=== PATIENT | male | born 1965 | race Caucasian/White ===

== ENCOUNTER 2019-07-05 06:06 | Emergency (ER) | payer MEDICARE, SELFPAY ==
--- NOTE | ~2019-07-05 | XR_ITS ---
XR knee LT 2V 07/05/2019 06:44 Indication: Left knee pain Procedure: 3 views left knee Comparison: 06/05/2017 Findings: Large amount of prepatellar soft tissue swelling. No acute fracture or traumatic malalignme nt. Small loose bodies are identified overlying the joint space, unchanged from prior examination. Impression: 1: No acute fracture. 2: Large amount of prepatellar soft tissue swelling. Consider bursitis. Reviewed, dictated and finalized at location A. Impression: 1: No acute fracture. 2: Large amount of prepatellar soft tissue swelling. Consider bursitis.
[2019-07-05 06:06] VITALS: BP 151/91; PULSE 78; RESP 20; TEMP 36.2; O2SAT 98
--- NOTE | 2019-07-05 06:27 | ED.LOWEXIN ---
HPI - Extremity Injury (Lower) General Chief Complaint: Extremity Injury, Lower Stated Complaint: ambulance Source: patient Mode of arrival: ambulatory Limitations: no limitations History of Present Illness HPI Narrative: This is a 54-year-old morbidly obese gentleman that was at home and was going to the bathroom and fell and landed directly on his left knee others currently pain that he rates at 8/10, also a hematoma anterior surface of his left knee patient is ordered Xarelto for history of DVTs. There is no other injuries has decreased range of motion of his left knee secondary to pain and swelling and inflammation. There is no numbness or tingling and has a good brisk pedal pulse. Onset (ago): hour(s) Injury: Left: knee Place: home Severity: moderate Severity scale (1-10): 8 Relieving factors: nothing Exacerbating factors: weight bearing and movement Context: fall and direct blow Associated symptoms: swelling Other symptoms: none Related Data Home Medications Medication Instructions Recorded Confirmed allopurinol 300 mg PO DAILY 07/05/19 07/05/19 amiodarone 200 mg PO DAILY 07/05/19 07/05/19 benazepril 20 mg PO DAILY 07/05/19 07/05/19 citalopram 20 mg PO DAILY 07/05/19 07/05/19 furosemide 40 mg PO DAILY 07/05/19 07/05/19 levothyroxine 100 mcg PO DAILY 07/05/19 07/05/19 pantoprazole 40 mg PO DAILY 07/05/19 07/05/19 potassium chloride 20 meq PO DAILY 07/05/19 07/05/19 rivaroxaban [Xarelto] 20 mg PO DAILY 07/05/19 07/05/19 triamcinolone acetonide 1 applic TOPICAL DAILY 07/05/19 07/05/19 Allergies Allergy/AdvReac Type Severity Reaction Status Date / Time Penicillins AdvReac Unknown Verified 07/05/19 06:24 Review of Systems Review of Systems: All systems reviewed & are unremarkable except as noted in HPI and below PMFSH Past Medical History Medical History DVT (deep venous thrombosis) HTN (hypertension) Hypothyroidism (acquired) Exam Const: General: no acute distress and alert Nutritional Appearance: well nourished and obese Orientation/consciousness: patient oriented x3 HENMT: Head: normal to inspection Eyes: Conjunctivae: conjunctivae normal Pupils: Equal, round and reactive pupils present EOM: EOMs intact bilaterally Neck: Neck: normal visual inspection and no lymphadenopathy Chest: Chest palpation & inspection: normal inspection of the chest Resp: Effort & Inspection: normal respiratory effort GI: GI Palp: Yes Soft to palpation Percussion: Yes normal to percussion Back/Spine/Pelvis: Back: no CVA tenderness Skin: Wounds: wounds noted ( Anterior surface of his left knee with hematoma) Neuro: General: patient oriented x3 Extrem: Other: hematoma swelling and decreased range of motion of his left knee secondary to pain and inflammation Psych: Mental Status: mental status grossly normal Critical Care Time Critical Care Time Critical Care Time: No Discharge Plan Discharge Prescriptions: No Action furosemide 40 mg tablet 40 mg PO DAILY RF: 0 amiodarone 200 mg tablet 200 mg PO DAILY RF: 0 triamcinolone acetonide 0.1 % cream 1 applic TOPICAL DAILY RF: 0 levothyroxine 100 mcg tablet 100 mcg PO DAILY RF: 0 citalopram 20 mg tablet 20 mg PO DAILY RF: 0 potassium chloride 20 mEq tablet,ER particles/crystals 20 meq PO DAILY RF: 0 pantoprazole 40 mg tablet,delayed release (DR/EC) 40 mg PO DAILY RF: 0 benazepril 20 mg tablet 20 mg PO DAILY RF: 0 allopurinol 300 mg tablet 300 mg PO DAILY RF: 0 Xarelto 20 mg tablet 20 mg PO DAILY RF: 0
[2019-07-05] MEDS: KETOROLAC (*BKC) 60 MG/2 ML VIAL IM (06:32)
--- NOTE | 2019-07-05 07:02 | PC.NURSE ---
0615 ICE PACK APPLIED TO LEFT KNEE. 0700 MARLENY WRAP APPLIED TO LEFT KNEE.
[2019-07-05 07:21] VITALS: BP 138/75; PULSE 78; RESP 20; TEMP 36.3; O2SAT 97
--- NOTE | 2019-07-05 07:31 | PC.NURSE ---
EXTRA WIDE BENCH TAKEN TO ROOM FOR PT. ASSISTED TO BENCH. PT ABLE TO STAND ON LEFT KNEE AND AMBULATE WITH NO ASSISTANCE. PT GIVEN CALL MENDEZ. WATCHING TV. DOMINICK REID ORDERED.
== END 2019-07-05 07:30 | disposition home or self-care (01) ==
PROVIDERS: Emergency Provider Emergency Medicine; PCP Family Medicine
DX: S83.92XA Sprain of unspecified site of left knee, initial encounter (principal); Z86.718 Personal history of other venous thrombosis and embolism; I10 Essential (primary) hypertension; E03.9 Hypothyroidism, unspecified; W19.XXXA Unspecified fall, initial encounter
CPT/HCPCS: 73560; 96372; 99282; 99283; J1885

== ENCOUNTER 2019-08-06 15:37 | Observation (INO) | payer MEDICARE, MEDICAID, SELFPAY ==
--- NOTE | ~2019-08-06 | CT_ITS ---
EXAMINATION: CT knee LT w con DATE: 08/06/2019 18:30 INDICATION: Left anterior knee wound/cellulitis TECHNIQUE: Computed tomography (CT) of the left knee was performed with 100 cc intravenous contrast. The dose-length product was 1019.82 mGy-cm. Automated exposure control and iterative reconstruction t echnique were employed. COMPARISON: Left knee series dated 07/05/2019 FINDINGS: There is a walled off hypodense fluid collection involving the prepatellar and infrapatella r anterior soft tissues measuring 9.7 x 2.3 x 2.1 cm. There is moderate surrounding edema of the subc utaneous tissues. There is a focal skin defect at the superior margin of the fluid collection. No acu te fracture or traumatic malalignment. There is mild osteoarthritis of the knee. There are small ossi fic densities along the medial margin of the distal aspect of the femur, likely related to remote tra sammi or degenerative change. There are vascular calcifications. No significant joint effusion. IMPRESSION: 1. Superficial walled off fluid collection with enhancing rim, suspicious for abscess, measuring 9.7 x 2.3 x 2.1 cm with the superior aspect of the patellar level extending inferiorly to the level of th e tibial metaphysis. There is a soft tissue cleft along the superior margin of the fluid collection w hich may represent ulceration, surgical defect or laceration. Correlate clinically. There is adjacent subcutaneous edema suspicious for cellulitis. Reviewed, dictated and finalized at location A. IMPRESSION: 1. Superficial walled off fluid collection with enhancing rim, suspicious for a bscess, measuring 9.7 x 2.3 x 2.1 cm with the superior aspect of the patellar l evel extending inferiorly to the level of the tibial metaphysis. There is a sof t tissue cleft along the superior margin of the fluid collection which may repr esent ulceration, surgical defect or laceration. Correlate clinically. There is adjacent subcutaneous edema suspicious for cellulitis.
[2019-08-06 15:40] VITALS: BP 132/72; PULSE 88; RESP 20; TEMP 36.7; O2SAT 96
--- NOTE | 2019-08-06 16:08 | ED.WOUNDLAC ---
HPI - Wound/Laceration General Chief Complaint: Wound/Laceration Stated Complaint: knee pain Time Seen by Provider: 08/06/19 16:08 Source: patient Mode of arrival: ambulatory History of Present Illness HPI narrative: 54-year-old man with a history of chronic venous stasis in his lower extremities was sent from Dr. Cantu's office for redness, pain swelling and drainage from a left knee wound that has been present for over a week. He states he fell. He denies fever, nausea, vomiting, night sweats, shortness of breath, cough or cold symptoms, recent travel or ill exposures. He denies prior bacterial infections. Onset (ago): week(s) (1-1.5) Extremity Location: Left: knee Place: home Patient tetanus UTD: No Context: accidental Associated symptoms: pain Treatments prior to arrival: bandage Related Data Home Medications Medication Instructions Recorded Confirmed allopurinol 300 mg PO DAILY 07/05/19 08/06/19 amiodarone 200 mg PO DAILY 07/05/19 08/06/19 benazepril 20 mg PO DAILY 07/05/19 08/06/19 citalopram 20 mg PO DAILY 07/05/19 08/06/19 furosemide 40 mg PO DAILY 07/05/19 08/06/19 levothyroxine 100 mcg PO DAILY 07/05/19 08/06/19 pantoprazole 40 mg PO DAILY 07/05/19 08/06/19 potassium chloride 20 meq PO DAILY 07/05/19 08/06/19 rivaroxaban [Xarelto] 20 mg PO DAILY 07/05/19 08/06/19 Allergies Allergy/AdvReac Type Severity Reaction Status Date / Time Sulfa (Sulfonamide Allergy Rash Verified 08/06/19 16:25 Antibiotics) Penicillins AdvReac Unknown Verified 07/05/19 06:24 Review of Systems Constitutional: Constitutional: Denies chills, Denies fever(s) and Denies weakness Eyes: Eyes: Denies change in vision and Denies photophobia ENT: Denies dysphagia, Denies nasal congestion and Denies sore throat Cardiovascular: Cardiovascular: Denies chest pain and Denies radiating jaw, neck or arm pain Respiratory: Respiratory: Denies cough, Denies dyspnea and Denies wheezing Gastrointestinal: Gastrointestinal: Denies abdominal pain, Denies diarrhea, Denies nausea and Denies vomiting Genitourinary: Genitourinary: Denies dysuria, Denies urinary frequency and Denies urinary incontinence Musculoskeletal: Musculoskeletal: Denies back pain, Reports arthralgias and Reports joint swelling Integumentary/Breasts: Skin/Breast: Reports as per HPI and Reports erythema Neurologic: Denies vertigo, Denies dizziness and Denies syncope Psychiatric: Psychiatric: Denies anxiety and Denies depression Endocrine: Endocrine: Denies polydipsia and Denies polyuria Hematologic/Lymphatic: Hematologic/Lymphatic: Denies easy bleeding and Denies easy bruising Allergic/Immunologic: Allergic/Immunologic: Denies lip swelling and Denies wheezing PMFSH Past Medical History Medical History CAD (coronary artery disease) CHF (congestive heart failure) COPD (chronic obstructive pulmonary disease) DVT (deep venous thrombosis) GERD (gastroesophageal reflux disease) HTN (hypertension) Hypothyroidism Hypothyroidism (acquired) Obesity Paroxysmal A-fib Psoriasis Pulmonary emboli Renal insufficiency Surgical History Surgical History (Updated 08/06/19 @ 16:51 by Blair Miles MD) Hx of cholecystectomy Social History Social History (Updated 08/06/19 @ 16:52 by Blair Miles MD) Smoking status: Former smoker Alcohol intake: former Substance use: never Living arrangements: with family Gender identity (if verbalized by the patient): Male Exam Const: General: no acute distress and alert Orientation/consciousness: patient oriented x3 Limitations: no limitations HENMT: Head: normal to inspection Ears: external ears normal Mouth: Yes lip normal and Yes moist mucous membranes Eyes: Conjunctivae: conjunctivae normal Pupils: Equal, round and reactive pupils present EOM: EOMs intact bilaterally Resp: Effort & Inspection: normal respiratory effort and not labored Auscu
[2019-08-06 16:51] LABS: Basophils Absolute Auto 0.04 K/mm3 (0.00-0.10); Basophils Percent Auto 0.6 % (0.0-1.0); Eosinophils Absolute Auto 0.27 K/mm3 (0.02-0.50); Eosinophils Percent Auto 4.1 % (1.0-6.0); Hematocrit 36.8 % (40.0-54.0); Hemoglobin 11.1 g/dL (14.0-18.0); Immature Granulocyte Absolute 0.06 K/mm3 (0.00-0.00); Immature Granulocyte Percent A 0.9 % (0.0-0.0); Lymphocytes Absolute Auto 0.89 K/mm3 (1.10-4.50); Lymphocytes Percent Auto 13.5 % (18.0-42.0); Mean Corpuscular HGB Conc 30.2 g/dL (32.0-36.0); Mean Corpuscular Hemoglobin 29.3 pg (27.0-31.0); Mean Corpuscular Volume 97.1 fL (78.0-102.0); Mean Platelet Volume 9.8 fl (8.7-11.0); Monocytes Absolute Auto 0.48 K/mm3 (0.10-0.90); Monocytes Percent Auto 7.3 % (2.0-11.0); Neutrophils Absolute Auto 4.8 K/mm3 (1.7-7.2); Neutrophils Percent Auto 73.6 % (50.0-70.0); Platelet Count Result 191 K/mm3 (150-420); Red Blood Count 3.79 M/mm3 (4.70-6.10); Red Cell Distribution Width 16.2 % (11.6-14.4); White Blood Count 6.6 K/mm3 (4.8-10.8)
[2019-08-06 17:01] LABS: INR 1.3; Partial Thromboplastin Time 39.5 SEC (22.3-31.6); Prothrombin Time 13.4 Seconds (9.64-11.0)
[2019-08-06 17:04] LABS: Alanine Aminotransferase 21 U/L (16-63); Albumin Level 3.1 g/dL (3.4-5.0); Alkaline Phosphatase 59 U/L (46-116); Anion Gap 12.2 mmol/L (7-16); Aspartate Amino Transferase 14 U/L (15-37); Bilirubin,Total 0.4 mg/dL (0.00-1.00); Blood Urea Nitrogen 28 mg/dL (7-18); CRP 5.4 mg/dL (0.0-0.9); Calcium 9.1 mg/dL (8.5-10.1); Carbon Dioxide 28 mmol/L (21-32); Chloride 108 mmol/L (98-108); Estimated CRCL calculation 56 ml/min; Estimated Glomerular Filt Rate 42; Glucose 110 mg/dL (70-99); Osmolality Calculated 302 mOsm/kg (285-295); Potassium 5.2 mmol/L (3.5-5.1); Sodium 143 mmol/L (136-145); Total Protein 6.9 g/dL (6.4-8.2)
[2019-08-06 17:07] LABS: Hemoglobin A1C 5.4 % (<5.7)
[2019-08-06 17:09] LABS: Lactic Acid Reflex 1.1 mmol/L (0.4-2.0)
[2019-08-06] MEDS: TETANUS,DIPHTHERIA,AC PERTUSSIS ADULT 0.5 ML (ADACEL) IM (17:13)
[2019-08-06 17:34] VITALS: BP 119/67; PULSE 78; RESP 20; O2SAT 98
--- NOTE | 2019-08-06 17:45 | PC.NURSE ---
Wound care/dressing performed by Dr Miles at this time.
[2019-08-06 18:25] VITALS: BP 129/67; PULSE 87; RESP 20; O2SAT 100
[2019-08-06] MEDS: SODIUM CHLORIDE 0.9% IV 500 ML 999 ML IV CONT (18:26)
[2019-08-06 18:50] VITALS: BP 158/99; PULSE 72; RESP 16; TEMP 36.6; O2SAT 100
[2019-08-06 19:07] VITALS: BMI 49.1
[2019-08-06 19:17] LABS: Add Urine Microscopic? YES; Appearance Urine Clear (Clear); Bilirubin Urine Negative (Negative); Blood Urine 2+ (Negative); Color Urine Yellow (Yellow); Glucose Urine UA Negative (Negative); Ketones Urine Negative (Negative); Leukocyte Esterase Ur Negative LEU/UL (Negative); Nitrate Urine Negative (Negative); Protein Urine Negative (Negative); Specific Grav Ur 1.015 (1.010-1.020); Urobilinogen Urine 0.2 mg/dL (0.2-1.0); pH Urine 6.5 (5.0-8.0)
--- NOTE | 2019-08-06 19:28 | PC.NURSE ---
here from er at 1835 from er for obs for cellulitis of l knee. pt claims he fell approx 2 weks prior and has been attempting to tx at home. claims leg is more swollen than usual. amb to br. gait steady and up in chair eating supper. drg dry and intact to L knee. urine obtained and sent to lab.
[2019-08-06 19:34] LABS: Squamous Epithelial Cell Urine Rare /hpf (Few); WBC Urine 0-3 /hpf (0-3)
[2019-08-06 19:35] VITALS: RESP 16
--- NOTE | 2019-08-06 19:37 | PC.NURSE ---
[facility] and 500 ml bolus are completed. Patient is sitting in a chair at bedside seating a sandwich. He has not complaints at this time and he denies needing any assistance. Call light is within reach.
--- NOTE | 2019-08-06 20:15 | PM.OP ---
Procedure Note - Brief Procedure Note - Brief Date of procedure: 08/06/19 Pre-op diagnosis: knee pain Surgeon: Blair Miles MD I and D right anterior knee wound: Large area from the lower thigh to the upper tibia region was scrubbed thoroughly and 3 times with Hibiclens. Sterile drapes were placed. No anesthesia was used. Using the already open portion of the wound, blunt dissection using a long forceps was used to evacuate the wound of approximately 60 cc of clot and blood, both superior to, laterally and medial 2, and especially distal to the open wound. Wound was then irrigated with 300 cc of sterile normal saline under pressure from a syringe. it was packed with plain 1 inch tape gauze. Wound was then dressed with dry dressings. Culture was previously done. Tolerated very well by the patient.
--- NOTE | 2019-08-06 20:37 | PC.NURSE ---
Dr. Miles in to room to do wound procedure on left knee. Hazmat Tanker Driver in room. Dr. Miles Packed wound with 1/2 inch gauze ribbon and dry gauze dressing was applied over wound and wrapped with kerlix. Patient tolerated procedure well.
[2019-08-06 20:41] VITALS: BP 160/91; PULSE 63; RESP 20; TEMP 36.2; O2SAT 99
[2019-08-06] MEDS: ACETAMINOPHEN 500 MG TABLET 1000 MG PO (22:10)
[2019-08-07] VITALS: BP 115/68; PULSE 68; RESP 16; TEMP 36.6; O2SAT 97
[2019-08-07 06:23] LABS: Basophils Absolute Auto 0.03 K/mm3 (0.00-0.10); Basophils Percent Auto 0.5 % (0.0-1.0); Eosinophils Absolute Auto 0.33 K/mm3 (0.02-0.50); Eosinophils Percent Auto 5.1 % (1.0-6.0); Hematocrit 34.5 % (40.0-54.0); Hemoglobin 10.5 g/dL (14.0-18.0); Immature Granulocyte Absolute 0.05 K/mm3 (0.00-0.00); Immature Granulocyte Percent A 0.8 % (0.0-0.0); Lymphocytes Absolute Auto 1.03 K/mm3 (1.10-4.50); Lymphocytes Percent Auto 15.8 % (18.0-42.0); Mean Corpuscular HGB Conc 30.4 g/dL (32.0-36.0); Mean Corpuscular Hemoglobin 29.5 pg (27.0-31.0); Mean Corpuscular Volume 96.9 fL (78.0-102.0); Mean Platelet Volume 9.4 fl (8.7-11.0); Monocytes Absolute Auto 0.54 K/mm3 (0.10-0.90); Monocytes Percent Auto 8.3 % (2.0-11.0); Neutrophils Absolute Auto 4.5 K/mm3 (1.7-7.2); Neutrophils Percent Auto 69.5 % (50.0-70.0); Platelet Count Result 169 K/mm3 (150-420); Red Blood Count 3.56 M/mm3 (4.70-6.10); Red Cell Distribution Width 16.2 % (11.6-14.4); White Blood Count 6.5 K/mm3 (4.8-10.8)
[2019-08-07] MEDS: LEVOTHYROXINE SODIUM 100 MCG TABLET PO (06:25)
[2019-08-07 06:40] LABS: Alanine Aminotransferase 18 U/L (16-63); Albumin Level 2.7 g/dL (3.4-5.0); Alkaline Phosphatase 50 U/L (46-116); Anion Gap 11.1 mmol/L (7-16); Aspartate Amino Transferase 14 U/L (15-37); Bilirubin,Total 0.4 mg/dL (0.00-1.00); Blood Urea Nitrogen 25 mg/dL (7-18); Calcium 8.5 mg/dL (8.5-10.1); Carbon Dioxide 26 mmol/L (21-32); Chloride 109 mmol/L (98-108); Estimated CRCL calculation 60 ml/min; Estimated Glomerular Filt Rate 46; Glucose 97 mg/dL (70-99); Osmolality Calculated 296 mOsm/kg (285-295); Potassium 5.1 mmol/L (3.5-5.1); Sodium 141 mmol/L (136-145); Total Protein 6.2 g/dL (6.4-8.2)
[2019-08-07 07:10] VITALS: BP 127/79; PULSE 63; RESP 16; TEMP 36.4; O2SAT 97
[2019-08-07] MEDS: allopurinoL 300 MG TABLET PO (09:10)
[2019-08-07] MEDS: CITALOPRAM HYDROBROMIDE 20 MG TABLET PO (09:10)
[2019-08-07 09:11] VITALS: PULSE 74
[2019-08-07] MEDS: AMIODARONE HCL 200 MG TABLET PO (09:11)
[2019-08-07] MEDS: PANTOPRAZOLE 40 MG TABLET PO (09:11)
[2019-08-07] MEDS: lisinopriL 20 MG TABLET PO (09:11)
[2019-08-07] MEDS: FUROSEMIDE 40 MG TABLET PO (09:11)
[2019-08-07] MEDS: RIVAROXABAN 10 MG TABLET 20 MG PO (09:11)
--- NOTE | 2019-08-07 10:11 | PM.IMHP ---
H&P: HPI History of Present Illness Chief complaint: knee pain Narrative: Hubert Bergman is a 54 year old male who presented to the ED with a swollen, erythema wound with drainage to his left knee. Patient has a past medical history CAD, CHF, COPD, DVT, GERD, hypertension, hypothyroidism, obesity, AFib, PE, renal insufficiency And chronic venous stasis. According to patient he fell a couple of weeks ago and after the fall his left knee started to swell up and became reddened with serosanguineous drainage. patient's vital signs currently are 127/79, 63, 16, 36.4, 97% on room air. while patient was in the ED of [facility] with packing was complete on his anterior knee wound. CT of the knee did indicate suspicious of abscess with cellulitis. Patient white cell count was within normal limits 6.5, lactic acid was within normal limits patient's CRP was elevated 5.4 and patient was placed on vancomycin. Patient will remain as an inpatient and treated with IV antibiotics. Dr. Miles will assess the wound tomorrow and determine whether patient will discharge . Patient able to tolerate all meals , slept well and ambulate at baseline. Patient denies SOB, CP, palpitation, extremity numbness, lightheadness, dizziness, constipation, diarrhea, chills or fever. Review of Systems Review of Systems: Narrative: HEENT: PERRLA, Mucous Membranes Moist and [place], Nares Patent, Sclera Clear Neck: JVD, Supple Pulmonary: Clear to Auscultation, Normal Air Movement Cardiovascular: No Murmurs, Gallops, or Rubs, Regular Rhythm, Regular Rate Abdominal: Abdomen Soft, Non-Distended, Normal Bowel Sounds Extremities: Normal Pulses Neurological: Normal Gait, Normal Speech Psychological: Mental Status NL, Mood NL Integumentary/Breasts: Skin/Breast: Reports erythema ( left leg), Reports skin swelling ( left leg) and Reports other ( bloody drainage) [facility] Past Medical History Medical History CAD (coronary artery disease) CHF (congestive heart failure) COPD (chronic obstructive pulmonary disease) DVT (deep venous thrombosis) GERD (gastroesophageal reflux disease) HTN (hypertension) Hypothyroidism Hypothyroidism (acquired) Obesity Paroxysmal A-fib Psoriasis Pulmonary emboli Renal insufficiency Surgical History Surgical History (Updated 08/06/19 @ 16:51 by Blair Miles MD) Hx of cholecystectomy Social History Social History (Updated 08/06/19 @ 16:52 by Blair Miles MD) Smoking status: Never smoker Alcohol intake: never Substance use: never Living arrangements: with family Gender identity (if verbalized by the patient): Male Spiritual care concerns: No Agree to blood products: No Meds Home Medications and Allergies Home Medications Medication Instructions Recorded Confirmed Type allopurinol 300 mg PO DAILY 07/05/19 08/06/19 History amiodarone 200 mg PO DAILY 07/05/19 08/06/19 History benazepril 20 mg PO DAILY 07/05/19 08/06/19 History citalopram 20 mg PO DAILY 07/05/19 08/06/19 History furosemide 40 mg PO DAILY 07/05/19 08/06/19 History levothyroxine 100 mcg PO DAILY 07/05/19 08/06/19 History pantoprazole 40 mg PO DAILY 07/05/19 08/06/19 History potassium chloride 20 meq PO DAILY 07/05/19 08/06/19 History rivaroxaban [Xarelto] 20 mg PO DAILY 07/05/19 08/06/19 History Allergies Allergy/AdvReac Type Severity Reaction Status Date / Time Sulfa (Sulfonamide Allergy Rash Verified 08/06/19 16:25 Antibiotics) Penicillins AdvReac Unknown Verified 07/05/19 06:24 Vital Signs Vital Signs - 24 hr 08/06/19 15:40 08/06/19 17:34 08/06/19 18:25 Temperature 36.7 C Pulse Rate 88 78 87 Respiratory Rate 20 20 20 Blood Pressure 132/72 119/67 129/67 Pulse Oximetry 96 98 100 08/06/19 18:50 08/06/19 19:35 08/06/19 20:41 Temperature 36.6 C 36.2 C L Pulse Rate 72 63 Respiratory Rate 16 16 20 Blood Pressure 158/99 H 160/91 H Pulse Oximetry 10
[2019-08-07 11:06] LABS: BNP 216 pg/mL (0-100)
--- NOTE | 2019-08-07 11:35 | PC.NURSE ---
Patient sitting up in chair resting. Denies any needs. Call light and belongings at side.
--- NOTE | 2019-08-07 14:20 | PC.NURSE ---
Patient tolerated dressing cange well. Dressing had sero-sanguineous drainage. Packing left in place. Area surrounding open site cleaned well with saline. Site covered with gauze and wrapped with kerlix. Patient sitting up in chair. Denies any needs. Call light at side.
[2019-08-07 15:50] VITALS: BP 118/73; PULSE 63; RESP 18; TEMP 36.6; O2SAT 100
[2019-08-07] MEDS: ACETAMINOPHEN 500 MG TABLET 1000 MG PO (19:29)
--- NOTE | 2019-08-07 19:30 | PC.NURSE ---
pt sitting in chair watching tv, reports pain in left knee, medication given see MAR, denies any other needs at this time, call light and belongings within reach, water pitcher on bedside table
--- NOTE | 2019-08-07 20:12 | PC.NURSE ---
pt assisted to bed, belongings and call light within reach, fresh ice water given
--- NOTE | 2019-08-07 23:16 | PC.NURSE ---
Pt sleeping, respirations even and regular, no evidence of distress noted
--- NOTE | 2019-08-08 | PC.NURSE ---
Pt up to bathroom, steady gait, tolerated well, voided drk yellow urine, encouraged to drink more water when awake
[2019-08-08 00:10] VITALS: BP 102/60; PULSE 72; RESP 20; TEMP 36.4; O2SAT 95
--- NOTE | 2019-08-08 01:12 | PC.NURSE ---
Pt sleeping, respirations even and regular, no evidence of distress noted
--- NOTE | 2019-08-08 02:15 | PC.NURSE ---
Pt sleeping, respirations even and regular, no evidence of distress noted, call light and belongings within reach
--- NOTE | 2019-08-08 04:11 | PC.NURSE ---
pt sleeping, no evidence of distress noted, belongings and call light within reach
[2019-08-08 05:41] LABS: Basophils Absolute Auto 0.04 K/mm3 (0.00-0.10); Basophils Percent Auto 0.7 % (0.0-1.0); Eosinophils Absolute Auto 0.38 K/mm3 (0.02-0.50); Eosinophils Percent Auto 6.2 % (1.0-6.0); Hematocrit 33.9 % (40.0-54.0); Hemoglobin 10.5 g/dL (14.0-18.0); Immature Granulocyte Absolute 0.05 K/mm3 (0.00-0.00); Immature Granulocyte Percent A 0.8 % (0.0-0.0); Lymphocytes Absolute Auto 0.91 K/mm3 (1.10-4.50); Lymphocytes Percent Auto 14.9 % (18.0-42.0); Mean Corpuscular Hemoglobin 29.9 pg (27.0-31.0); Mean Corpuscular Volume 96.6 fL (78.0-102.0); Mean Platelet Volume 9.5 fl (8.7-11.0); Monocytes Absolute Auto 0.54 K/mm3 (0.10-0.90); Monocytes Percent Auto 8.9 % (2.0-11.0); Neutrophils Absolute Auto 4.2 K/mm3 (1.7-7.2); Neutrophils Percent Auto 68.5 % (50.0-70.0); Platelet Count Result 186 K/mm3 (150-420); Red Blood Count 3.51 M/mm3 (4.70-6.10); Red Cell Distribution Width 16.3 % (11.6-14.4); White Blood Count 6.1 K/mm3 (4.8-10.8)
[2019-08-08] MEDS: LEVOTHYROXINE SODIUM 100 MCG TABLET PO (05:45)
[2019-08-08 05:57] LABS: Alanine Aminotransferase 15 U/L (16-63); Albumin Level 2.7 g/dL (3.4-5.0); Alkaline Phosphatase 52 U/L (46-116); Aspartate Amino Transferase 12 U/L (15-37); Bilirubin,Total 0.4 mg/dL (0.00-1.00); Blood Urea Nitrogen 24 mg/dL (7-18); CRP 2.2 mg/dL (0.0-0.9); Calcium 8.6 mg/dL (8.5-10.1); Carbon Dioxide 27 mmol/L (21-32); Chloride 108 mmol/L (98-108); Estimated CRCL calculation 60 ml/min; Estimated Glomerular Filt Rate 46; Glucose 95 mg/dL (70-99); Osmolality Calculated 296 mOsm/kg (285-295); Sodium 141 mmol/L (136-145); Total Protein 6.1 g/dL (6.4-8.2)
--- NOTE | 2019-08-08 06:00 | PC.NURSE ---
pt resting in bed, denies any complaints or needs at this time
[2019-08-08 07:35] VITALS: BP 127/82; PULSE 78; RESP 16; TEMP 36.6; O2SAT 96
[2019-08-08 08:11] VITALS: PULSE 78
[2019-08-08] MEDS: AMIODARONE HCL 200 MG TABLET PO (08:11)
[2019-08-08] MEDS: FUROSEMIDE 40 MG TABLET PO (08:11)
[2019-08-08] MEDS: RIVAROXABAN 10 MG TABLET 20 MG PO (08:11)
[2019-08-08] MEDS: lisinopriL 20 MG TABLET PO (08:11)
[2019-08-08] MEDS: CITALOPRAM HYDROBROMIDE 20 MG TABLET PO (08:11)
[2019-08-08] MEDS: allopurinoL 300 MG TABLET PO (08:12)
[2019-08-08] MEDS: PANTOPRAZOLE 40 MG TABLET PO (08:12)
--- NOTE | 2019-08-08 09:54 | PM.DS ---
DS: Diagnosis Admitting Diagnosis Admitting Diagnosis: Unspecified open wound, left knee, initial encounter DS: Summary Hospital Course Hospital Course: Inform your doctor of wound care. Dressing change- clean area with normal saline and packed with iodine iodoform (used about 2.5 inches and wounds are approximately 1/4 inches tunneling around wound. Time Spent with Patient Time attestation: Total time spent providing and/or coordinating discharge services: DS: Data Data Completed and Pending Labs on day of discharge: Labs from last 24 hours 08/08/19 08/08/19 08/07/19 05:32 05:32 06:18 WBC 6.1 RBC 3.51 L Hgb 10.5 L Hct 33.9 L MCV 96.6 MCH 29.9 MCHC 31.0 L RDW 16.3 H Plt Count 186 MPV 9.5 Immature Gran % (Auto) 0.8 H Neut % (Auto) 68.5 Lymph % (Auto) 14.9 L [place] % (Auto) 8.9 Eos % (Auto) 6.2 H Baso % (Auto) 0.7 Lymph # (Auto) 0.91 L [place] # (Auto) 0.54 Eos # (Auto) 0.38 Baso # (Auto) 0.04 Abs Immat Gran (auto) 0.05 H Absolute Neuts (auto) 4.2 Absolute Nucleated RBC 0.00 Nucleated RBC % 0.0 Sodium 141 Potassium 5.0 Chloride 108 Carbon Dioxide 27 Anion Gap 11.0 BUN 24 H Creatinine 1.59 H Estim Creat Clear Calc 60 Estimated GFR 46 L Glucose 95 Calculated Osmolality 296 H Calcium 8.6 Total Bilirubin 0.4 AST 12 L ALT 15 L Alkaline Phosphatase 52 C-Reactive Protein 2.2 H B-Natriuretic Peptide 216 H Total Protein 6.1 L Albumin 2.7 L Preliminary micro results at discharge 08/06/19 16:45 Blood Culture - Preliminary Blood 08/06/19 16:45 Blood Culture - Preliminary Blood Discharge Plan Discharge Attending physician on discharge: Blair Miles Discharging Clinician: Sandra Padgett Anticipated Discharge Date/Time: 08/08/19 10:19 Patient Disposition: Home, Self-Care Activity: as tolerated Diet: heart healthy Discharge Instructions: GENERAL FOLLOW-UP CARE Keep the wound clean and dry. Some patients can be taught to change their own packing, replace the dressings, and advance the drain. Watch for signs of recurrence of the abscess or for evidence of worsening infection such as cellulitis. Notify the clinician immediately if any of the following occurs: re-collection of pus in the abscess, fever and chills, increased pain or redness, red streaks near the abscess, increased swelling in the area. Take medications as prescribed. Follow up with Provider ON Friday FOR DRESSING CHANGE When do I need to call the doctor? Signs of infection. These include a fever of 100.4?F (38?C) or higher, chills, or wound that will not heal. Signs of wound infection. These include swelling, redness, warmth around the wound; too much pain when touched; yellowish, greenish, or bloody discharge; foul smell coming from the cut or wound site; wound site opens up; blisters form at the site. When cellulitis is on the face, any signs of spreading to the sinus or eye must be evaluated and treated right away to avoid a serious problem, called orbital cellulitis. This can lead to severe sinus infection, blindness, brain abscess, or . Inflamed area is getting bigger You see red streaks going up your arm or leg Feeling weak or dizzy You are not feeling better in 2 to 3 days or you are feeling worse Inform your doctor of wound care. Dressing change- clean area with normal saline and packed with iodine iodoform (used about 2.5 inches and wounds are approximately 1/4 inches tunneling around wound. DO NOT TAKE A BATH OR SHOWER UNTIL YOU FOLLOW UP WITH YOUR DOCTOR. Patient Instructions: Antibiotic Form, Cellulitis (DC), Information About Antibiotic Use (GEN) Stand Alone Forms: General Discharge Information Follow-up/Referrals: Pepe,Josue Shea MD [Primary Care Provider] - (Call [facility] Friday08/09/2019 to get in to see Friday08/10/19.) Discharge Me
--- NOTE | 2019-08-08 11:25 | PC.NURSE ---
Patient sitting up in chair resting. Denies any need at this time. IV ATB infusing per order. Call light within reach.
--- NOTE | 2019-08-08 13:15 | PC.NURSE ---
Patient to be discharged home. Patient aware. All discharge instructions reviewed with patient. IV site removed, tip intact. Pressure held to area, dressing applied. Patient toelrated well. Patient states understanding of discharge instructions. Reports no questions at this time. All belongings gathered and sent home with patient. Patient transferred from chair to wheelchair with no assist. Patient taken down via wheelchair by this nurse, Left via private vehicle with sister.
--- NOTE | 2019-08-08 23:14 | PM.EVENT ---
Event Note Event Note Event Note: Patient states that his affected knee has been aching. He denies fever, nausea, vomiting. Good oral intake. alert and oriented. No acute distress. Lungs are clear to auscultation bilaterally. Regular rate rhythm with good distal pulses and warm extremities. Wound is without discharge. Wound was repacked today. we will switch the patient to p.o. clindamycin today and discharged home with follow-up in 2 days with his primary care doctor. I have reviewed the chart and examined the patient. I discussed the patient's care with Van Padgett APN and agree with her assessment and plan.
--- NOTE | 2019-08-24 14:36 | PC.NURSE ---
DISCHARGE FOLLOW UP CALL: No answer, message left at [phone]
--- NOTE | 2019-08-25 14:34 | PC.NURSE ---
DISCHARGE FOLLOW UP CALL: No answer, message left at [phone]
--- NOTE | 2019-08-25 14:45 | PC.NURSE ---
#2 DISCHARGE FOLLOW UP CALL: No answer, final message left at [phone]
--- NOTE | 2019-08-25 18:21 | PCDIET ---
Discharge call back call back no problems stated. every one did great. No problems with discharge medications or with making it to follow-up appointment. patient called back.
== END 2019-08-08 13:15 | disposition home or self-care (01) ==
LOC: CHSED 16:55 → CHS2ND 18:08
PROVIDERS: Nurse Practitioner; Admitting Provider Emergency Medicine; Emergency Provider Emergency Medicine; PCP Family Medicine; Visit Provider Emergency Medicine
DX: S81.002A Unspecified open wound, left knee, initial encounter (principal); L03.116 Cellulitis of left lower limb; W19.XXXA Unspecified fall, initial encounter; I48.0 Paroxysmal atrial fibrillation; I87.2 Venous insufficiency (chronic) (peripheral); I87.8 Other specified disorders of veins; J44.9 Chronic obstructive pulmonary disease, unspecified; I25.10 Atherosclerotic heart disease of native coronary artery without angina pectoris; I11.0 Hypertensive heart disease with heart failure; I50.9 Heart failure, unspecified; K21.9 Gastro-esophageal reflux disease without esophagitis; E03.9 Hypothyroidism, unspecified; N28.9 Disorder of kidney and ureter, unspecified; E66.9 Obesity, unspecified; Z79.01 Long term (current) use of anticoagulants; Z86.711 Personal history of pulmonary embolism; Z86.718 Personal history of other venous thrombosis and embolism
CPT/HCPCS: 10061; 36415; 73701; 80053; 81001; 83036; 83605; 83880; 85025; 85610; 85730; 86140; 87040; 87070; 87147; 87186; 87205; 90471; 90715; 96365; 96366; 96374; 96375; 99285; A9270; G0378; J3370; J7040; Q9965

== ENCOUNTER 2019-12-31 15:25 | Emergency (ER) | payer MEDICARE, MEDICAID, SELFPAY ==
[2019-12-31 15:39] VITALS: BP 142/88; PULSE 72; RESP 18; TEMP 36.8; O2SAT 100
--- NOTE | 2019-12-31 16:12 | ED.WOUNDLAC ---
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 Has applied dressing because he was unabel to get lesion to stop bleeding. Decided to come into Ed for evaluation. Related Data Home Medications Medication Instructions Recorded Confirmed Xarelto 20 mg PO DAILY 07/05/19 12/31/19 allopurinol 300 mg PO DAILY 07/05/19 12/31/19 amiodarone 200 mg PO DAILY 07/05/19 12/31/19 benazepril 20 mg PO DAILY 07/05/19 12/31/19 citalopram 20 mg PO DAILY 07/05/19 12/31/19 furosemide 40 mg PO DAILY 07/05/19 12/31/19 levothyroxine 100 mcg PO DAILY 07/05/19 12/31/19 pantoprazole 40 mg PO DAILY 07/05/19 12/31/19 potassium chloride 20 meq PO DAILY 07/05/19 12/31/19 Allergies Allergy/AdvReac Type Severity Reaction Status Date / Time Sulfa (Sulfonamide Allergy Rash Verified 08/06/19 16:25 Antibiotics) Penicillins AdvReac Unknown Verified 07/05/19 06:24 Review of Systems Review of Systems: All systems reviewed & are unremarkable except as noted in HPI and below Constitutional: Constitutional: Reports as per HPI Eyes: Eyes: Reports as per HPI ENT: Reports system reviewed and no additional complaints, except as documented Cardiovascular: Cardiovascular: Reports as per HPI and Reports no additional cardiovascular complaints Respiratory: Respiratory: Reports no additional respiratory complaints Gastrointestinal: Gastrointestinal: Reports no additional gastrointestinal complaints Genitourinary: Genitourinary: Reports no additional male genitourinary complaints Musculoskeletal: Musculoskeletal: Reports no additional musculoskeletal complaints Integumentary/Breasts: Skin/Breast: Reports system reviewed and no additional complaints, except as docu Neurologic: Reports system reviewed and no additional complaints, except as documented Psychiatric: Psychiatric: Reports no additional psychiatric complaints Endocrine: Endocrine: Reports no additional endocrine complaints Hematologic/Lymphatic: Hematologic/Lymphatic: Reports as per HPI Comments: Right Foot varicose vein bleeding Allergic/Immunologic: Allergic/Immunologic: Reports no additional allergic/immunologic complaints [facility] Past Medical History Medical History (Updated 12/31/19 @ 16:21 by Varun Pizarro MD) CAD (coronary artery disease) CHF (congestive heart failure) COPD (chronic obstructive pulmonary disease) Current use of residential anticoagulation DVT (deep venous thrombosis) GERD (gastroesophageal reflux disease) HTN (hypertension) Hypothyroidism Hypothyroidism (acquired) Obesity Paroxysmal A-fib Psoriasis Pulmonary emboli Renal insufficiency Surgical History Surgical History Hx of cholecystectomy Social History Social History Smoking status: Never smoker Alcohol intake: never Substance use: never Gender identity (if verbalized by the patient): Male Spiritual care concerns: No Agree to blood products: No Exam Const: General: no acute distress and alert Orientation/consciousness: patient oriented x3 HENMT: Head: normal to inspection Chest: Chest palpation & inspection: normal inspection of the chest Resp: Effort & Inspection: normal respiratory effort Auscultation: clear to auscultation bilaterally Cardio: Rate: regular rate Rhythm: regular rhythm GI: Inspection: non-distended GI Palp: Yes Soft to palpation, No Tenderness to palpation present (GI), No Guarding due to palpation present (GI), No Rigid due to palpation and No Rebound tenderness present Skin: Other: Right foot 3mm wound w/ no active bleeding Neuro: General: patient oriented x3, moves all extremities, no meningeal signs, no focal motor deficits and CN's II-XI intact bilaterally
== END 2019-12-31 16:23 | disposition home or self-care (01) ==
PROVIDERS: Emergency Provider Family Medicine
DX: Z79.01 Long term (current) use of anticoagulants (principal); S91.301A Unspecified open wound, right foot, initial encounter; I25.10 Atherosclerotic heart disease of native coronary artery without angina pectoris; I50.9 Heart failure, unspecified; J44.9 Chronic obstructive pulmonary disease, unspecified; K21.9 Gastro-esophageal reflux disease without esophagitis; I11.0 Hypertensive heart disease with heart failure; E03.9 Hypothyroidism, unspecified; Z86.711 Personal history of pulmonary embolism
CPT/HCPCS: 99282

== ENCOUNTER 2020-05-14 00:53 | Emergency (ER) | payer MEDICARE, MEDICAID, SELFPAY ==
--- NOTE | ~2020-05-14 | XR_ITS ---
EXAMINATION: XR chest 1V portable 05/14/2020 01:51 INDICATION: Fever PROCEDURE: AP portable chest COMPARISON: 06/05/2017 FINDINGS: The lungs are clear. The cardiomediastinal silhouette is within normal limits. There are no pleural effusions. There is no pneumothorax suspected. IMPRESSION: 1: NO ACUTE CARDIOPULMONARY DISEASE. Reviewed, dictated and finalized at location A. RONMENTAL MANAGER
[2020-05-14 01:10] VITALS: BP 150/93; PULSE 86; RESP 20; TEMP 37.7; O2SAT 100
[2020-05-14 01:24] VITALS: BP 129/70; PULSE 83; RESP 20; O2SAT 100
[2020-05-14] MEDS: ACETAMINOPHEN 325 MG TABLET 650 MG PO (01:28)
[2020-05-14 02:05] VITALS: TEMP 37.3
[2020-05-14 02:20] LABS: SARS-CoV-2 Ag Negative (Negative)
[2020-05-14 02:28] LABS: Basophils Absolute Auto 0.04 K/mm3 (0.00-0.10); Basophils Percent Auto 0.4 % (0.0-1.0); Eosinophils Absolute Auto 0.15 K/mm3 (0.02-0.50); Eosinophils Percent Auto 1.4 % (1.0-6.0); Hematocrit 42.2 % (40.0-54.0); Hemoglobin 12.6 g/dL (14.0-18.0); Immature Granulocyte Absolute 0.06 K/mm3 (0.00-0.00); Immature Granulocyte Percent A 0.6 % (0.0-0.0); Lymphocytes Absolute Auto 0.63 K/mm3 (1.10-4.50); Lymphocytes Percent Auto 5.9 % (18.0-42.0); Mean Corpuscular HGB Conc 29.9 g/dL (32.0-36.0); Mean Corpuscular Hemoglobin 27.3 pg (27.0-31.0); Mean Corpuscular Volume 91.3 fL (78.0-102.0); Monocytes Absolute Auto 0.41 K/mm3 (0.10-0.90); Monocytes Percent Auto 3.8 % (2.0-11.0); Neutrophils Absolute Auto 9.4 K/mm3 (1.7-7.2); Neutrophils Percent Auto 87.9 % (50.0-70.0); Platelet Count Result 166 K/mm3 (150-420); Red Blood Count 4.62 M/mm3 (4.70-6.10); Red Cell Distribution Width 17.9 % (11.6-14.4); White Blood Count 10.7 K/mm3 (4.8-10.8)
[2020-05-14 02:29] LABS: Influenza Control Valid (Valid)
[2020-05-14 02:39] LABS: Add Urine Microscopic? YES; Appearance Urine Clear (Clear); Bilirubin Urine Negative (Negative); Blood Urine 1+ (Negative); Color Urine Yellow (Yellow); Glucose Urine UA Negative (Negative); Ketones Urine Negative (Negative); Leukocyte Esterase Ur Negative (Negative); Nitrate Urine Negative (Negative); Protein Urine Negative (Negative); Urobilinogen Urine 0.2 mg/dL (0.2-1.0); pH Urine 5.5 (5.0-8.0)
[2020-05-14 02:47] LABS: Squamous Epithelial Cell Urine Occasional /hpf (Few)
[2020-05-14 03:02] LABS: Alanine Aminotransferase 13 U/L (16-63); Alkaline Phosphatase 52 U/L (46-116); Anion Gap 10 mmol/L (8-16); Aspartate Amino Transferase < 10 U/L (15-37); Bilirubin,Total 0.6 mg/dL (0.00-1.00); Blood Urea Nitrogen 23 mg/dL (7-18); Calcium 8.7 mg/dL (8.5-10.1); Carbon Dioxide 24 mmol/L (21-32); Chloride 105 mmol/L (98-108); Estimated Glomerular Filt Rate 36; Glucose 89 mg/dL (70-99); Osmolality Calculated 290 mOsm/kg (285-295); Potassium 4.7 mmol/L (3.5-5.1); Sodium 139 mmol/L (136-145); Total Protein 7.1 g/dL (6.4-8.2)
[2020-05-14 03:07] LABS: Lactic Acid Reflex 1.7 mmol/L (0.4-2.0)
--- NOTE | 2020-05-14 03:08 | ED.FEVER ---
HPI - Fever General Chief Complaint: Fever Stated Complaint: Chills Source: patient Mode of arrival: EMS Limitations: no limitations History of Present Illness HPI Narrative: This is a 54-year-old gentleman that presents via EMS after he call them while he was having low-grade fever and chills, denied any shortness of breath no chest pain no nausea vomiting no abdominal pain no dysuria. The patient has a history of atrial fibrillation history of CHF and hypothyroidism. MD elicited complaint: fever Onset (ago): hour(s) Exacerbating factors: nothing Relieving factors: acetaminophen Associated symptoms: chills Related Data Home Medications Medication Instructions Recorded Confirmed allopurinol 200 mg PO DAILY 05/14/20 05/14/20 amiodarone 200 mg PO DAILY 05/14/20 05/14/20 benazepril 20 mg PO DAILY 05/14/20 05/14/20 citalopram 40 mg PO DAILY 05/14/20 05/14/20 cyanocobalamin (vitamin B-12) 500 mcg PO DAILY 05/14/20 05/14/20 [Vitamin B-12] ferrous sulfate 325 mg PO DAILY 05/14/20 05/14/20 furosemide 40 mg PO DAILY 05/14/20 05/14/20 levothyroxine 75 mcg PO DAILY 05/14/20 05/14/20 levothyroxine 100 mcg PO DAILY 05/14/20 05/14/20 pantoprazole 40 mg PO DAILY 05/14/20 05/14/20 potassium chloride 20 meq PO DAILY 05/14/20 05/14/20 rivaroxaban [Xarelto] 20 mg PO DAILY 05/14/20 05/14/20 Allergies Allergy/AdvReac Type Severity Reaction Status Date / Time Penicillins Allergy Unknown Verified 05/14/20 01:10 Sulfa (Sulfonamide Allergy Unknown Verified 05/14/20 01:10 Antibiotics) Review of Systems Review of Systems: All systems reviewed & are unremarkable except as noted in HPI and below PMFSH Past Medical History Medical History Afib CHF (congestive heart failure) Exam Const: General: no acute distress and alert Orientation/consciousness: patient oriented x3 HENMT: Head: normal to inspection Eyes: Conjunctivae: conjunctivae normal Pupils: Equal, round and reactive pupils present EOM: EOMs intact bilaterally Neck: Neck: normal visual inspection, no lymphadenopathy and no meningeal signs Chest: Chest palpation & inspection: normal inspection of the chest Resp: Effort & Inspection: normal respiratory effort Auscultation: clear to auscultation bilaterally Cardio: Rate: regular rate Rhythm: abnormal rhythm Peripheral pulses: Peripheral pulses 2+ throughout GI: GI Palp: Yes Soft to palpation Back/Spine/Pelvis: Back: no CVA tenderness Skin: General skin exam: normal color Rashes: no rashes Neuro: General: patient oriented x3 and moves all extremities Psych: Mental Status: mental status grossly normal Affect: normal affect Attitude: cooperative 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 Vital Signs Vital signs: Vital Signs Temperature 37.7 C H 05/14/20 01:10 Pulse Rate 86 05/14/20 01:10 Respiratory Rate 20 05/14/20 01:10 Blood Pressure 150/93 H 05/14/20 01:10 Pulse Oximetry 100 05/14/20 01:10 Temperature 37.3 C 05/14/20 02:05 Pulse Rate 83 05/14/20 01:24 Respiratory Rate 20 05/14/20 01:24 Blood Pressure 129/70 05/14/20 01:24 Pulse Oximetry 100 05/14/20 01:24 MDM - Fever Lab Data Result diagrams: 05/14/20 02:22 05/14/20 02:22 Labs: Lab Results 05/14/20 05/14/20 05/14/20 Range/Units : 01:17 01:34 WBC (4.8-10.8) K/mm3 RBC (4.70-6.10) M/mm3 Hgb (14.0-18.0) g/dL Hct (40.0-54.0) % MCV (78.0-102.0) fL MCH (27.0-31.0) pg MCHC (32.0-36.0) g/dL RDW (11.6-14.4) % Plt Count (150-420) K/mm3 MPV (8.7-11.0) fl Immature Gran % (Auto) (0.0-0.0) % Neut % (Auto) (50.0-70.0) % Lymph % (Auto) (18.0-42.0) % [place] % (Auto) (2.0-11.0) % Eos % (Auto) (1.0-6.0) % Baso % (A
[2020-05-14 03:10] VITALS: BP 116/83; PULSE 78; RESP 20; TEMP 37.2; O2SAT 97
== END 2020-05-14 03:19 | disposition home or self-care (01) ==
PROVIDERS: Emergency Provider Emergency Medicine; PCP Family Medicine
DX: B34.9 Viral infection, unspecified (principal)
CPT/HCPCS: 36415; 71045; 80053; 81001; 83605; 85025; 87040; 87077; 87186; 87426; 87804; 99282; 99283; A9270; C9803

== ENCOUNTER 2020-06-07 14:13 | Outpatient (CLI) | payer MEDICARE, SELFPAY ==
[2020-06-08 01:37] LABS: SARS-CoV-2 RNA PCR Negative
== END 2020-06-07 14:14 | disposition home or self-care (01) ==
LOC: CHSLAB 14:17
PROVIDERS: PCP Family Medicine; Visit Provider Nurse Practitioner
DX: Z20.822 Contact with and (suspected) exposure to COVID-19 (principal)
CPT/HCPCS: C9803; U0003; U0005

== ENCOUNTER 2020-09-17 16:26 | Emergency (ER) | payer MEDICARE, MEDICAID, SELFPAY ==
[2020-09-17 17:03] VITALS: BP 175/86; PULSE 98; RESP 20; TEMP 37.8; O2SAT 98
--- NOTE | 2020-09-17 17:15 | ED.GENADULT ---
HPI - General Adult General Chief complaint: Abdominal Pain Stated complaint: ambualnce Time Seen by Provider: 09/17/20 17:15 Source: patient Mode of arrival: ambulatory Limitations: no limitations History of Present Illness HPI narrative: Patient comes in with mild, sharp, abdominal pain. This has gone on for the past two days. This has been relatively mild in severity and ongoing. Not associated with fever or chills. Measures at home have not decreased the pain. Onset (ago): day(s) Location: abdomen Radiation: abdomen Severity: mild Quality: sharp Pain Consistency: constant Relieving factors: none Exacerbating factors: none Associated symptoms: denies other symptoms Related Data Home Medications Medication Instructions Recorded Confirmed Xarelto 20 mg PO DAILY 07/05/19 12/31/19 allopurinol 300 mg PO DAILY 07/05/19 12/31/19 amiodarone 200 mg PO DAILY 07/05/19 12/31/19 benazepril 20 mg PO DAILY 07/05/19 12/31/19 citalopram 20 mg PO DAILY 07/05/19 12/31/19 furosemide 40 mg PO DAILY 07/05/19 12/31/19 levothyroxine 100 mcg PO DAILY 07/05/19 12/31/19 pantoprazole 40 mg PO DAILY 07/05/19 12/31/19 potassium chloride 20 meq PO DAILY 07/05/19 12/31/19 Allergies Allergy/AdvReac Type Severity Reaction Status Date / Time Sulfa (Sulfonamide Allergy Rash Verified 08/06/19 16:25 Antibiotics) Penicillins AdvReac Unknown Verified 07/05/19 06:24 Review of Systems Constitutional: Constitutional: Reports no additional constitutional complaints Eyes: Eyes: Reports no additional eye complaints ENT: Reports system reviewed and no additional complaints, except as documented Cardiovascular: Cardiovascular: Reports no additional cardiovascular complaints Respiratory: Respiratory: Reports no additional respiratory complaints Gastrointestinal: Gastrointestinal: Reports no additional gastrointestinal complaints Genitourinary: Genitourinary: Reports no additional male genitourinary complaints Musculoskeletal: Musculoskeletal: Reports no additional musculoskeletal complaints Integumentary/Breasts: Skin/Breast: Reports system reviewed and no additional complaints, except as docu Neurologic: Reports system reviewed and no additional complaints, except as documented Psychiatric: Psychiatric: Reports no additional psychiatric complaints Endocrine: Endocrine: Reports no additional endocrine complaints Hematologic/Lymphatic: Hematologic/Lymphatic: Reports no additional hematologic/lymphatic complaints Allergic/Immunologic: Allergic/Immunologic: Reports no additional allergic/immunologic complaints [facility] Past Medical History Medical History CAD (coronary artery disease) CHF (congestive heart failure) COPD (chronic obstructive pulmonary disease) 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 DVT (deep venous thrombosis) GERD (gastroesophageal reflux disease) HTN (hypertension) Hypothyroidism Hypothyroidism (acquired) Obesity Paroxysmal A-fib Psoriasis Pulmonary emboli Renal insufficiency Surgical History Surgical History Hx of cholecystectomy Family History Family History Other Family history non-contributory Social History Social History Smoking status: Never smoker Alcohol intake: never Substance use: never Gender identity (if verbalized by the patient): Male Spiritual care concerns: No Agree to blood products: No Exam Const: General: no acute distress Orientation/consciousness: patient oriented x3 HENMT: Head: normal to inspection Ears: external ears normal and TM's normal bilaterally General nose exam: Normal external nose present Mouth: Yes Normal oral and palatal mucosa present Throat: posterior oropharynx normal Eyes: Conjunctivae: conjunctivae normal Neck: Neck: normal visual in
[2020-09-17 17:34] LABS: Hematocrit 41.7 % (40.0-54.0); Hemoglobin 13.2 g/dL (14.0-18.0); Mean Corpuscular HGB Conc 31.7 g/dL (32.0-36.0); Mean Corpuscular Hemoglobin 31.3 pg (27.0-31.0); Mean Corpuscular Volume 98.8 fL (78.0-102.0); Mean Platelet Volume 9.6 fl (8.7-11.0); Platelet Count Result 182 K/mm3 (150-420); Red Blood Count 4.22 M/mm3 (4.70-6.10); Red Cell Distribution Width 14.3 % (11.6-14.4); White Blood Count 11.6 K/mm3 (4.8-10.8)
[2020-09-17 17:44] LABS: D Dimer 0.24 mg/L (0.19-0.50)
[2020-09-17 17:47] LABS: Alanine Aminotransferase 26 U/L (16-63); Alkaline Phosphatase 70 U/L (46-116); Amylase 26 U/L (25-115); Anion Gap 9 mmol/L (8-16); Aspartate Amino Transferase 17 U/L (15-37); Bilirubin,Total 0.9 mg/dL (0.00-1.00); Blood Urea Nitrogen 19 mg/dL (7-18); Calcium 8.7 mg/dL (8.5-10.1); Carbon Dioxide 25 mmol/L (21-32); Chloride 106 mmol/L (98-108); Estimated CRCL calculation 57 ml/min; Estimated Glomerular Filt Rate 45; Glucose 83 mg/dL (70-99); Lipase 56 U/L (73-393); Osmolality Calculated 291 mOsm/kg (285-295); Sodium 140 mmol/L (136-145); Total Protein 6.7 g/dL (6.4-8.2)
[2020-09-17 18:33] LABS: Add Urine Microscopic? NO; Appearance Urine Clear (Clear); Bilirubin Urine Negative (Negative); Blood Urine Negative (Negative); Color Urine Yellow (Yellow); Glucose Urine UA Negative (Negative); Ketones Urine Negative (Negative); Leukocyte Esterase Ur Negative LEU/UL (Negative); Nitrate Urine Negative (Negative); Protein Urine Negative (Negative); Specific Grav Ur 1.015 (1.010-1.020); Urobilinogen Urine 0.2 mg/dL (0.2-1.0); pH Urine 5.5 (5.0-8.0)
[2020-09-17 19:10] VITALS: BP 119/63; PULSE 102; RESP 20; TEMP 36.6; O2SAT 96
== END 2020-09-17 19:14 | disposition home or self-care (01) ==
PROVIDERS: Emergency Provider Emergency Medicine; PCP Family Medicine
DX: R10.33 Periumbilical pain (principal)
CPT/HCPCS: 36415; 80053; 81003; 82150; 83690; 85027; 85380; 87040; 87077; 87186; 99282; 99283

== ENCOUNTER 2020-10-18 14:28 | Emergency (ER) | payer MEDICARE, MEDICAID, SELFPAY ==
[2020-10-18 15:14] VITALS: BP 112/71; PULSE 84; RESP 20; TEMP 36.6; O2SAT 95
--- NOTE | 2020-10-18 16:13 | ED.WOUNDLAC ---
HPI - Wound/Laceration General Source: patient Mode of arrival: ambulatory Limitations: no limitations History of Present Illness HPI narrative: Patient comes in after cutting his left thumb, on the palm surface, at the intercarpal joint area, on a tin can just about 30 minutes prior to arrival. Wound is 2cm wide, somewhat gaped, but only skin depth. Bleeding has ceased. He has been on an anticoagulant for his A Fib. He has held pressure on the wound. Onset (ago): minute(s) Place: home Patient tetanus UTD: Yes Context: accidental Associated symptoms: none Related Data Home Medications Medication Instructions Recorded Confirmed Xarelto 20 mg PO DAILY 07/05/19 10/18/20 allopurinol 100 mg PO BID 07/05/19 10/18/20 amiodarone 200 mg PO DAILY 07/05/19 10/18/20 benazepril 20 mg PO DAILY 07/05/19 10/18/20 citalopram 40 mg PO DAILY 07/05/19 10/18/20 furosemide 40 mg PO DAILY 07/05/19 10/18/20 levothyroxine 75 mcg PO DAILY 07/05/19 10/18/20 pantoprazole 40 mg PO DAILY 07/05/19 10/18/20 potassium chloride 20 meq PO DAILY 07/05/19 10/18/20 Allergies Allergy/AdvReac Type Severity Reaction Status Date / Time Sulfa (Sulfonamide Allergy Rash Verified 08/06/19 16:25 Antibiotics) Penicillins AdvReac Unknown Verified 07/05/19 06:24 Review of Systems Constitutional: Constitutional: Reports no additional constitutional complaints Eyes: Eyes: Reports no additional eye complaints ENT: Reports system reviewed and no additional complaints, except as documented Cardiovascular: Cardiovascular: Reports no additional cardiovascular complaints Respiratory: Respiratory: Reports no additional respiratory complaints Gastrointestinal: Gastrointestinal: Reports no additional gastrointestinal complaints Genitourinary: Genitourinary: Reports no additional male genitourinary complaints Musculoskeletal: Musculoskeletal: Reports no additional musculoskeletal complaints Integumentary/Breasts: Skin/Breast: Reports system reviewed and no additional complaints, except as docu Neurologic: Reports system reviewed and no additional complaints, except as documented Psychiatric: Psychiatric: Reports no additional psychiatric complaints Endocrine: Endocrine: Reports no additional endocrine complaints Hematologic/Lymphatic: Hematologic/Lymphatic: Reports no additional hematologic/lymphatic complaints Allergic/Immunologic: Allergic/Immunologic: Reports no additional allergic/immunologic complaints [facility] Past Medical History Medical History CAD (coronary artery disease) CHF (congestive heart failure) COPD (chronic obstructive pulmonary disease) 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 DVT (deep venous thrombosis) GERD (gastroesophageal reflux disease) HTN (hypertension) Hypothyroidism Hypothyroidism (acquired) Obesity Paroxysmal A-fib Psoriasis Pulmonary emboli Renal insufficiency Surgical History Surgical History Hx of cholecystectomy Family History Family History Other Family history non-contributory Social History Social History Smoking status: Never smoker Alcohol intake: never Substance use: never Gender identity (if verbalized by the patient): Male Spiritual care concerns: No Agree to blood products: No Exam Const: General: no acute distress Orientation/consciousness: patient oriented x3 HENMT: Head: normal to inspection Ears: external ears normal General nose exam: Normal external nose present Mouth: Yes Normal oral and palatal mucosa present Eyes: Conjunctivae: conjunctivae normal Neck: Neck: normal visual inspection Chest: Chest palpation & inspection: normal inspection of the chest Resp: Effort & Inspection: normal respiratory effort Auscultation: clear to auscultation bilaterally Card
[2020-10-18 16:42] VITALS: PULSE 82; RESP 20; O2SAT 96
== END 2020-10-18 16:44 | disposition home or self-care (01) ==
PROVIDERS: Emergency Provider Emergency Medicine; PCP Nurse Practitioner
DX: S61.012A Laceration without foreign body of left thumb without damage to nail, initial encounter (principal); W26.8XXA Contact with other sharp object(s), not elsewhere classified, initial encounter
CPT/HCPCS: 12001; 99282

== ENCOUNTER 2021-02-09 23:26 | Emergency (ER) | payer MEDICARE, MEDICAID, SELFPAY ==
--- NOTE | 2021-02-09 23:34 | ED.WOUNDLAC ---
HPI - Wound/Laceration General Chief Complaint: Wound/Laceration Stated Complaint: Laceration on wrist Time Seen by Provider: 02/09/21 23:34 Source: patient Mode of arrival: EMS Limitations: no limitations History of Present Illness HPI narrative: 55-year-old man with a history of atrial fibrillation and chronic anticoagulant use brought to the emergency department by EMS after he cut his left wrist while cutting this take at home this evening. He is right handed. He slipped. He denies any numbness, tingling, decreased range of motion. He does not recall his last tetanus shot. He denies suicidal intent or ideation. Onset (ago): minute(s) (30) Extremity Location: Left: forearm Place: home Context: accidental Associated symptoms: pain Treatments prior to arrival: bandage Related Data Home Medications Medication Instructions Recorded Confirmed allopurinol 200 mg PO DAILY 05/14/20 02/09/21 amiodarone 200 mg PO DAILY 05/14/20 02/09/21 benazepril 20 mg PO DAILY 05/14/20 02/09/21 citalopram 40 mg PO DAILY 05/14/20 02/09/21 cyanocobalamin (vitamin B-12) 500 mcg PO DAILY 05/14/20 02/09/21 [Vitamin B-12] ferrous sulfate 325 mg PO DAILY 05/14/20 02/09/21 furosemide 40 mg PO DAILY 05/14/20 02/09/21 levothyroxine 75 mcg PO DAILY 05/14/20 02/09/21 levothyroxine 100 mcg PO DAILY 05/14/20 02/09/21 pantoprazole 40 mg PO DAILY 05/14/20 02/09/21 potassium chloride 20 meq PO DAILY 05/14/20 02/09/21 rivaroxaban [Xarelto] 20 mg PO DAILY 05/14/20 02/09/21 Allergies Allergy/AdvReac Type Severity Reaction Status Date / Time Penicillins Allergy Unknown Verified 05/14/20 01:10 Sulfa (Sulfonamide Allergy Unknown Verified 05/14/20 01:10 Antibiotics) Review of Systems Review of Systems: All systems reviewed & are unremarkable except as noted in HPI and below Cardiovascular: Cardiovascular: Denies chest pain and Denies radiating jaw, neck or arm pain Respiratory: Respiratory: Denies cough and Denies dyspnea Gastrointestinal: Gastrointestinal: Denies nausea and Denies vomiting Neurologic: Denies focal weakness and Denies numbness Hematologic/Lymphatic: Hematologic/Lymphatic: Reports easy bleeding and Reports easy bruising [facility] Past Medical History Medical History (Updated 02/09/21 @ 23:53 by Blair Miles MD) Afib CHF (congestive heart failure) GERD (gastroesophageal reflux disease) Hypothyroidism Social History Social History (Updated 02/09/21 @ 23:49 by Blair Miles MD) Smoking status: Never smoker Living arrangements: alone Exam Const: General: healthy appearing, no acute distress and alert Orientation/consciousness: patient oriented x3 Limitations: no limitations Resp: Effort & Inspection: normal respiratory effort and not labored Auscultation: clear to auscultation bilaterally, no rales, no rhonchi and no wheezes Cardio: Rate: regular rate Rhythm: regular rhythm Heart sounds: no murmurs Skin: General skin exam: normal color, no jaundice and no pallor Rashes: no rashes Other: 2.5 cm transverse laceration on the volar aspect of the left wrist. No active bleeding. Distal neurovascular exam is intact. Flexor tendons are intact to challenge. Neuro: General: patient oriented x3, moves all extremities, no focal motor deficits and CN's II-XI intact bilaterally Speech: normal speech Gait exam (Neuro): Normal gait present Extrem: General: normal to inspection and edema bilateral ( Chronic appearing) Psych: Appearance: grossly normal and well kempt Mental Status: mental status grossly normal Affect: normal affect Attitude: cooperative Thought content: Yes Normal thought content present Course Vital Signs Vital signs: Vital Signs Temperature 36.5 C 02/09/21 23:35 Pulse Rate 88 02/09/21 23:35 Respiratory Rate 20 02/09/21 23:35 Blood Pressure 127/81 02/09/21 23:35 Pulse Oximetry 99 02/09/21 23:35 Temperature 36.5 C 02/09/21 23:35 Pulse Rate 88 02/09/21
[2021-02-09 23:35] VITALS: BP 127/81; PULSE 88; RESP 20; TEMP 36.5; O2SAT 99
[2021-02-09] MEDS: TETANUS,DIPHTHERIA,AC PERTUSSIS ADULT 0.5 ML (ADACEL) IM (23:44)
[2021-02-09] MEDS: LIDO 1%/EPINEPHRINE 1:100,000 20 ML VIAL 5 ML INFILTRATE (23:45)
--- NOTE | 2021-02-10 00:13 | PC.NURSE ---
2335- Cleaned patient's wound with hibclense, 4x4's, and sterile water. Patient tolerated well.
[2021-02-10] MEDS: NEOMYCIN/POLYMYXIN/BACITRACIN OINTMENT PACKET 1 PACKET TOPICAL (00:23)
[2021-02-10 00:24] VITALS: BP 128/85; PULSE 89; RESP 18; TEMP 36.6; O2SAT 98
== END 2021-02-10 00:36 | disposition home or self-care (01) ==
PROVIDERS: Emergency Provider Emergency Medicine; PCP Family Medicine
DX: S61.512A Laceration without foreign body of left wrist, initial encounter (principal); W26.0XXA Contact with knife, initial encounter; I48.20 Chronic atrial fibrillation, unspecified; I50.9 Heart failure, unspecified; K21.9 Gastro-esophageal reflux disease without esophagitis; E03.9 Hypothyroidism, unspecified; Z79.01 Long term (current) use of anticoagulants
CPT/HCPCS: 12001; 90471; 90715; 99282

== ENCOUNTER 2021-04-22 10:50 | Inpatient (IN) | payer MEDICARE, MEDICAID, SELFPAY ==
[2021-04-22] VITALS (9 sets, daily range): BP systolic 82–107; BP diastolic 49–66; PULSE 78–87; RESP 16–20; TEMP 36.7–36.8; O2SAT 92–98; BMI 47.8
--- NOTE | ~2021-04-22 | XR_ITS ---
EXAMINATION: XR abdomen/kub 1V DATE: 04/24/2021 13:33 INDICATION: Hydronephrosis. TECHNIQUE: A supine view of the abdomen 4 radiographs was obtained. COMPARISON: CT abdomen and pelvis 04/23/2021 FINDINGS: There are no dilated loops of bowel. There is a filter in the inferior vena cava. There is an 18 x 11 mm stone in proximal right ureter. There is severe right hydronephrosis with persistent co ntrast. There is a 10 mm stone in left kidney. Surgical clips in the right upper quadrant are likely from cholecystectomy. IMPRESSION: 1. 18 x 11 mm stone in proximal right ureter with severe right hydronephrosis. 2. 10 mm left kidney stone. Reviewed, dictated and finalized at location B. ICAL INFORMATION SYSTEMS DIRECTOR
--- NOTE | ~2021-04-22 | XR_ITS ---
XR chest 1V portable DATE: 04/22/2021 11:35 INDICATION: Fever. Weakness. TECHNIQUE: Portable AP chest on 04/22/2021 1133 hours 06/05/2017 portable AP chest COMPARISON: 05/14/2020 portable AP chest FINDINGS: Borderline or increased heart size. Chronic mild blunting of left costophrenic angle since 2018 prior examinations. Right hilar mass lesion or adenopathy is not excluded. CT thorax with IV con trast material is recommended.. Mild infiltrate or atelectasis is suggested in the left lower lobe, left retrocardiac area. The lungs otherwise appear essentially clear. No pneumothorax. Aortic arch calcification. There is increased prominence of the right hilum compared to prior examinations. Right hilar mass les ion or adenopathy is not excluded. CT thorax with IV contrast material is recommended. IMPRESSION: Interval enlargement of right hilum since prior examinations; CT thorax with IV contrast material is recommended Mild left lower lobe infiltrate or atelectasis is suggested Reviewed, dictated and finalized at location A. CAL PRACTITIONERS IMPRESSION: Interval enlargement of right hilum since prior examinations; CT th orax with IV contrast material is recommended Mild left lower lobe infiltrate or atelectasis is suggested
--- NOTE | ~2021-04-22 | CT_ITS ---
EXAMINATION: CT abdomen pelvis wo/w con DATE: 04/23/2021 14:56 INDICATION: Abdominal mass. TECHNIQUE: Computed tomography (CT) of the abdomen and pelvis was performed without and with 100 mL O mnipaque 350 intravenous contrast. Automated exposure control and iterative reconstruction technique were employed. The dose-length product was 3241.41 mGy-cm. COMPARISON: Chest CT 04/23/2021 FINDINGS: The visualized portions of the lung bases demonstrate mild atelectasis. No pleural effusion . The heart size is normal. There are coronary artery calcifications. No pericardial effusion. The li latasha demonstrates pneumobilia, likely secondary to sphincterotomy. There is a 6.9 x 5.9 x 5.6 cm mass abutting the second portion of the duodenum and head of the pancreas. There is a small calcification in the mass. Calcifications in the tail of the pancreas are consistent with chronic pancreatitis. The spleen and adrenal glands are normal. There is cortical thinning of the kidneys. There is a 3 mm sto ne in right kidney. There is moderate right hydronephrosis. There is a 12 mm stone in proximal right ureter. There are cysts in left kidney measuring up to 13 mm. There is a filter in the infrarenal inf erior vena cava. There are no dilated loops of bowel. The appendix is normal. There are no pathologic ally enlarged lymph nodes. There is no free intraperitoneal fluid. There is subcutaneous fat strandin g in right lower quadrant, likely inflammation. There is chronic anterior wedging of multiple thoraci c vertebral bodies. There is mild lumbar spondylosis. IMPRESSION: 1. 6.9 x 5.9 x 5.6 m mass abutting the second portion of the duodenum and head of the pancreas. The d ifferential diagnosis includes gastrointestinal stromal tumor and pancreatic neuroendocrine tumor. CT -guided biopsy is recommended. 2. 12 mm stone in proximal right ureter with moderate right hydronephrosis. 3. 3 mm nonobstructing right kidney stone. Reviewed, dictated and finalized at location A. TRICAL EQUIPMENT TECHNICIAN IMPRESSION: 1. 6.9 x 5.9 x 5.6 m mass abutting the second portion of the duodenum and head of the pancreas. The differential diagnosis includes gastrointestinal stromal t umor and pancreatic neuroendocrine tumor. CT-guided biopsy is recommended. 2. 12 mm stone in proximal right ureter with moderate right hydronephrosis. 3. 3 mm nonobstructing right kidney stone.
--- NOTE | ~2021-04-22 | CT_ITS ---
EXAMINATION:CT diagnostic chest w con DATE: 04/23/2021 13:59 INDICATION: Abnormal chest radiograph. Fever. Cough. TECHNIQUE: Computed tomography (CT) of the chest was performed with 75 mL Omnipaque 350 intravenous c ontrast. Automated exposure control and iterative reconstruction technique were employed. The dose-le ngth product (DLP) was 522.00 mGy-cm. COMPARISON: Chest single view 04/22/2021 FINDINGS: The lungs demonstrate mild atelectasis. There is a 4 mm nodule in right upper lobe, likely benign. No pleural effusion. The heart size is normal. There are coronary artery calcifications. No p ericardial effusion. There are changes of cholecystectomy. Pneumobilia is noted, likely secondary to sphincterotomy. The central pulmonary arteries are enlarged, consistent with pulmonary arterial hyper tension. There are old healed bilateral rib fractures. There is mild chronic anterior wedging of mult iple vertebral bodies. IMPRESSION: 1. No evidence of malignancy. Reviewed, dictated and finalized at location A. CTOR OF STATE
--- NOTE | 2021-04-22 10:56 | ED.WEAKNESS ---
HPI - Weakness General Chief complaint: Weakness Stated complaint: ambulance Time Seen by Provider: 04/22/21 10:56 Source: patient Mode of arrival: EMS Limitations: no limitations History of Present Illness HPI Narrative: 54-year-old man with a history of coronary artery disease, congestive heart failure, COPD and long-term anticoagulation for pulmonary emboli and atrial fibrillation brought to the emergency department after he slid out of his chair twice and was unable to get himself back into his chair. He states he feels weak today. He has had a cough recently. He denies fever, chills, shortness of breath, , chest pain, nausea, vomiting, diarrhea, abdominal pain, rhinorrhea, sore throat, had recent sick exposures. Has a history of chronic cellulitis under his pannus for which she takes a topical ointment. MD Complaint: generalized weakness Onset (ago): day(s) Duration: constant and progressively worsening Migration: none Severity: moderate Relieving factors: none Exacerbating factors: none Associated symptoms: denies other symptoms Related Data Home Medications Medication Instructions Recorded Confirmed Xarelto 20 mg PO DAILY 07/05/19 04/22/21 allopurinol 100 mg PO BID 07/05/19 04/22/21 amiodarone 200 mg PO DAILY 07/05/19 04/22/21 benazepril 20 mg PO DAILY 07/05/19 04/22/21 citalopram 40 mg PO DAILY 07/05/19 04/22/21 furosemide 40 mg PO DAILY 07/05/19 04/22/21 levothyroxine 75 mcg PO DAILY 07/05/19 04/22/21 pantoprazole 40 mg PO DAILY 07/05/19 04/22/21 potassium chloride 20 meq PO DAILY 07/05/19 04/22/21 digoxin 250 mcg PO DAILY 04/22/21 04/22/21 metoprolol succinate 25 mg PO DAILY 04/22/21 04/22/21 Allergies Allergy/AdvReac Type Severity Reaction Status Date / Time Sulfa (Sulfonamide Allergy Rash Verified 04/22/21 11:36 Antibiotics) Penicillins AdvReac Unknown Verified 04/22/21 11:36 Review of Systems Review of Systems: All systems reviewed & are unremarkable except as noted in HPI and below Constitutional: Constitutional: Denies chills and Denies fever(s) Eyes: Eyes: Denies change in vision and Denies photophobia ENT: Denies nasal congestion and Denies sore throat Cardiovascular: Cardiovascular: Denies chest pain and Denies radiating jaw, neck or arm pain Respiratory: Respiratory: Denies cough, Denies dyspnea and Denies wheezing Gastrointestinal: Gastrointestinal: Denies abdominal pain, Denies diarrhea, Denies nausea and Denies vomiting Genitourinary: Genitourinary: Denies hematuria, Denies urinary frequency and Denies urinary incontinence Musculoskeletal: Musculoskeletal: Denies back pain, Denies arthralgias and Denies joint swelling Integumentary/Breasts: Skin/Breast: Denies pruritus, Reports erythema and Reports rash Neurologic: Denies vertigo, Denies dizziness, Denies syncope, Denies headache(s) and Reports weakness Hematologic/Lymphatic: Hematologic/Lymphatic: Reports easy bleeding and Reports easy bruising Allergic/Immunologic: Allergic/Immunologic: Denies lip swelling and Denies throat swelling PMFSH Past Medical History Medical History CAD (coronary artery disease) CHF (congestive heart failure) COPD (chronic obstructive pulmonary disease) 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
--- NOTE | 2021-04-22 11:00 | ECG_ITS ---
Measurements Intervals [place] Rate: 86 P: -59 UT: 166 QRS: -80 QRSD: 124 T: 5 QT: 354 QTc: 424 Interpretive Statements SINUS RHYTHM RIGHT BUNDLE BRANCH BLOCK LEFT ANTERIOR FASCICULAR BLOCK BASELINE ARTIFACT- I, II, III, AVR, AVL, AVF ABNORMAL ECG Electronically Signed On 04-23-2021 17:04:15 [employer] by Parrish Hayes D.O.
[2021-04-22 11:32] LABS: Basophils Absolute Auto 0.05 K/mm3 (0.00-0.10); Basophils Percent Auto 0.4 % (0.0-1.0); Eosinophils Absolute Auto 0.06 K/mm3 (0.02-0.50); Eosinophils Percent Auto 0.5 % (1.0-6.0); Hematocrit 39.8 % (40.0-54.0); Hemoglobin 12.2 g/dL (14.0-18.0); Immature Granulocyte Absolute 0.14 K/mm3 (0.00-0.00); Immature Granulocyte Percent A 1.2 % (0.0-0.0); Lymphocytes Absolute Auto 0.92 K/mm3 (1.10-4.50); Lymphocytes Percent Auto 7.8 % (18.0-42.0); Mean Corpuscular HGB Conc 30.7 g/dL (32.0-36.0); Mean Corpuscular Hemoglobin 32.1 pg (27.0-31.0); Mean Corpuscular Volume 104.7 fL (78.0-102.0); Monocytes Absolute Auto 0.58 K/mm3 (0.10-0.90); Monocytes Percent Auto 4.9 % (2.0-11.0); Neutrophils Percent Auto 85.2 % (50.0-70.0); Platelet Count Result 192 K/mm3 (150-420); Red Cell Distribution Width 16.9 % (11.6-14.4); White Blood Count 11.8 K/mm3 (4.8-10.8)
[2021-04-22 11:48] LABS: INR 1.5; Partial Thromboplastin Time 44.1 SEC (23.90-30.70); Prothrombin Time 15.9 Seconds (9.50-12.10)
[2021-04-22 11:52] LABS: Lactic Acid Reflex 1.7 mmol/L (0.4-2.0)
[2021-04-22 11:57] LABS: Alanine Aminotransferase 15 U/L (16-63); Albumin Level 2.8 g/dL (3.4-5.0); Alkaline Phosphatase 61 U/L (46-116); Anion Gap 9 mmol/L (8-16); Aspartate Amino Transferase < 10 U/L (15-37); Bilirubin,Total 1.5 mg/dL (0.00-1.00); Blood Urea Nitrogen 15 mg/dL (7-18); Calcium 8.5 mg/dL (8.5-10.1); Carbon Dioxide 23 mmol/L (21-32); Chloride 106 mmol/L (98-108); Estimated CRCL calculation 43 ml/min; Estimated Glomerular Filt Rate 32; Glucose 105 mg/dL (70-99); NT Pro B Type Natriuretic Pept 4076 pg/mL (0-125); Osmolality Calculated 286 mOsm/kg (285-295); Potassium 4.5 mmol/L (3.5-5.1); Sodium 138 mmol/L (136-145); Total Protein 6.2 g/dL (6.4-8.2)
[2021-04-22 12:00] LABS: CRP > 10.6 mg/dL (0.0-0.9)
[2021-04-22 12:10] LABS: Influenza A QL RT-PCR Negative (Negative); Influenza B QL RT-PCR Negative (Negative); SARS-CoV-2 RNA PCR Negative (Negative)
[2021-04-22 13:25] LABS: Add Urine Microscopic? YES; Appearance Urine Clear (Clear); Bilirubin Urine Negative (Negative); Blood Urine 3+ (Negative); Color Urine Yellow (Yellow); Glucose Urine UA Negative (Negative); Ketones Urine Negative (Negative); Leukocyte Esterase Ur Negative LEU/UL (Negative); Nitrate Urine Negative (Negative); Protein Urine 2+ (Negative); Specific Grav Ur 1.015 (1.010-1.020); pH Urine 7.5 (5.0-8.0)
[2021-04-22 13:30] LABS: Bacteria Urine Trace /hpf; Mucus Urine Rare /lpf; RBC Urine >75 /hpf (0-2); Squamous Epithelial Cell Urine None seen /hpf (Few); WBC Urine 0-3 /hpf (0-3)
--- NOTE | 2021-04-22 17:42 | ADMGEN ---
This patient, Hubert Bergman, was admitted to 2nd Floor Room 208-1. Patient/family oriented to hospital policies and general routines including ID bracelet, bed and alarms, visiting hours, pain management, procedures, bathroom and other care routines, personal items, smoking policy, room service/diet, and visiting hours. Information on how to activate the Rapid Response Team has been discussed. Patient/Family are encouraged to report perceived risks to care and to ask questions if they do not understand what they are told or what they should do.
--- NOTE | 2021-04-22 17:42 | PC.NURSE ---
pt able to roll in bed for pad change, pt has blood and pus underneath abdominal apron, cleaned area, extremely excoriated, pt reports it has been like this for awhile , hall director kyle notified, sitting up in bed for dinner, call light in reach
[2021-04-22] MEDS: SODIUM CHLORIDE 0.9% IV 1,000 ML 75 ML IV CONT (18:45)
[2021-04-22] MEDS: TOLNAFTATE 1% POWDER 45 GM BTL 1 APPLIC TOPICAL (20:27)
[2021-04-23] VITALS (12 sets, daily range): BP systolic 85–160; BP diastolic 42–70; PULSE 76–102; RESP 16–20; TEMP 36.6–37.1; O2SAT 92–97
[2021-04-23 05:37] LABS: Basophils Absolute Auto 0.04 K/mm3 (0.00-0.10); Basophils Percent Auto 0.6 % (0.0-1.0); Eosinophils Absolute Auto 0.21 K/mm3 (0.02-0.50); Eosinophils Percent Auto 2.9 % (1.0-6.0); Hemoglobin 10.3 g/dL (14.0-18.0); Immature Granulocyte Absolute 0.08 K/mm3 (0.00-0.00); Immature Granulocyte Percent A 1.1 % (0.0-0.0); Lymphocytes Absolute Auto 1.01 K/mm3 (1.10-4.50); Lymphocytes Percent Auto 14.1 % (18.0-42.0); Mean Corpuscular HGB Conc 30.3 g/dL (32.0-36.0); Mean Corpuscular Hemoglobin 31.7 pg (27.0-31.0); Mean Corpuscular Volume 104.6 fL (78.0-102.0); Mean Platelet Volume 10.2 fl (8.7-11.0); Monocytes Absolute Auto 0.46 K/mm3 (0.10-0.90); Monocytes Percent Auto 6.4 % (2.0-11.0); Neutrophils Absolute Auto 5.3 K/mm3 (1.7-7.2); Neutrophils Percent Auto 74.9 % (50.0-70.0); Platelet Count Result 152 K/mm3 (150-420); Red Blood Count 3.25 M/mm3 (4.70-6.10); Red Cell Distribution Width 17.1 % (11.6-14.4); White Blood Count 7.1 K/mm3 (4.8-10.8)
[2021-04-23 05:51] LABS: Alanine Aminotransferase 14 U/L (16-63); Albumin Level 2.3 g/dL (3.4-5.0); Alkaline Phosphatase 48 U/L (46-116); Anion Gap 10 mmol/L (8-16); Aspartate Amino Transferase 13 U/L (15-37); Bilirubin,Total 0.9 mg/dL (0.00-1.00); Blood Urea Nitrogen 20 mg/dL (7-18); Calcium 7.8 mg/dL (8.5-10.1); Carbon Dioxide 22 mmol/L (21-32); Chloride 109 mmol/L (98-108); Estimated CRCL calculation 45 ml/min; Estimated Glomerular Filt Rate 33; Glucose 76 mg/dL (70-99); Osmolality Calculated 293 mOsm/kg (285-295); Potassium 4.1 mmol/L (3.5-5.1); Sodium 141 mmol/L (136-145); Total Protein 5.3 g/dL (6.4-8.2)
--- NOTE | 2021-04-23 06:00 | ECHO_ITS ---
Patient Info Name: Hubert Bergman Age: 55 years : 1965 Gender: Male Ht: 64 in Wt: 278 lbs BSA: 2.46 m2 HR: 79 bpm BP: 91 / 45 mmHg Technical Quality: Fair Exam Date: 04/23/2021 8:59 AM Exam Location: [facility] Patient Status: Inpatient Admit Date: 04/22/2021 Staff Ordering Physician: Blair Miles MD House Fellow: Grecia Edwards Attending Provider: Blair Miles MD Referring Physician: Jd LOVE; Exam Type: CA echo doppler color flow Study Info Indications I51.9 - Heart disease, unspecified Complete two-dimensional, color flow and Doppler transthoracic echocardiogram is performed. Summary 1. Complete two-dimensional, color flow and Doppler transthoracic echocardiogram is performed. 2. Left ventricular systolic function is preserved, estimated at 50-55%. 3. Left ventricular chamber dimension is normal. 4. Left ventricular septal wall motion is abnormal with septal motion related to bundle branch block. 5. The left ventricular diastolic function is grade I diastolic dysfunction. 6. E/e' 15 is elevated. 7. Left atrial chamber dimension is mildly enlarged. Left Ventricle E/e' 15 is elevated. Left ventricular systolic function is preserved, estimated at 50-55%. Left ventricular chamber dimension is normal. Left ventricular septal wall motion is abnormal with septal motion related to bundle branch block. The left ventricular diastolic function is grade I diastolic dysfunction. Right Ventricle Right ventricular systolic function is normal and with normal TAPSE 3.1 cm. Right ventricular chamber dimension is normal. Left Atria Left atrial chamber dimension is mildly enlarged. Right Atria Right atrial chamber dimension is normal. Aortic Valve The aortic valve is trileaflet. There is no aortic valve stenosis. There is no aortic valve regurgitation. Pulmonic Valve There is no pulmonic regurgitation. Mitral Valve There is no mitral valve stenosis. There is no mitral valve regurgitation. Tricuspid Valve There is no tricuspid valve regurgitation. Pericardium/Pleural There is no pericardial effusion. Inferior Vena Cava Normal inferior vena cava with >50% collapse upon inspiration consistent with normal right atrial pressure, 5 mmHg. Aorta The aortic root size at the sinus of Valsalva is normal. Left Ventricular Outflow Tract Name Value Normal LVOT 2D LVOT Diameter 2.0 cm LVOT Doppler LVOT Peak Velocity 134 cm/s LVOT Peak Gradient 7 mmHg LVOT Mean Gradient 5 mmHg LVOT VTI 24 cm LVOT VTI/AV VTI Ratio 0.9 LVOT Stroke Volume 80 ml Mitral Valve Name Value Normal MV Doppler MV Decel [place] 586 cm/s2
[2021-04-23] MEDS: SODIUM CHLORIDE 0.9% IV 1,000 ML 75 ML IV CONT ×2 (07:53→22:02)
[2021-04-23] MEDS: TOLNAFTATE 1% POWDER 45 GM BTL 1 APPLIC TOPICAL ×2 (09:20→21:55)
[2021-04-23 12:39] LABS: Folic Acid 12.9 ng/mL (8.6->20); Vitamin B12 1036 pg/mL (193-986)
--- NOTE | 2021-04-23 14:42 | PM.IMHP ---
H&P: HPI History of Present Illness Date/Time: 04/23/21 12:32 Hubert Bergman is a 55 year old male initially admitted under Observation for Pneumonia, Acute on Chronic Renal Failure, Candidiasis of Pannus Fold, Elevated BNP. Will fully admit this Pt as he will require several days of antibiotics, Vancomycin, Rocephin, and Topical Ab for his severe Candidiasis of the abdominal pannus, wound consultation recommendations per wound consultation. Pt states that he called 911 because he was feeling light headed and dizzy when he stood up and he had fallen a couple times. He denies any changes in his medications and has not started or changed any OTC remedies. Pt states he lives alone and does not have any help. He would benefit by having a home health care provider visiting throughout the week once NV'ed home. Pt does not have any complaints at this time other than pannus fold pain. He has no CP, SOB, dizziness, when standing he has no dizziness or light headedness (though his orthostatic are significant), no abdominal pains, no body aches, fevers or chills. His only complaint at this time is pain under his pannus. He states he was informed he needed to lose weight to have pannus surgery and at this time he has lost 10 lbs. Pt has a PMHx of CAD, CHF, COPD, DVT, HTN, Hypothyroidism, Obesity, Paroxysmal A-fib, Psoriasis, PE, Renal Insufficiency. 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 DVT (deep venous thrombosis) GERD (gastroesophageal reflux disease) HTN (hypertension) Hypothyroidism Hypothyroidism (acquired) Obesity Paroxysmal A-fib Psoriasis Pulmonary emboli Renal insufficiency <NEY Franks - Last Filed: 04/23/21 20:13> Surgical History Surgical History: Surgical History Hx of cholecystectomy <NEY Franks - Last Filed: 04/23/21 20:13> Family History Family History: Family History Other Family history non-contributory <NEY Franks - Last Filed: 04/23/21 20:13> Social History Social History: Social History Smoking status: Never smoker Second hand tobacco smoke exposure: Yes Alcohol intake: never Substance use: never Substance use type: does not use Gender identity (if verbalized by the patient): Male Spiritual care concerns: No Agree to blood products: No <NEY Franks - Last Filed: 04/23/21 20:13> Meds Home Medications and Allergies Home medications: Home Medications Medication Instructions Recorded Confirmed Type Xarelto 20 mg PO DAILY 07/05/19 04/22/21 History allopurinol 100 mg PO BID 07/05/19 04/22/21 History amiodarone 200 mg PO DAILY 07/05/19 04/22/21 History benazepril 20 mg PO DAILY 07/05/19 04/22/21 History citalopram 40 mg PO DAILY 07/05/19 04/22/21 History furosemide 40 mg PO DAILY 07/05/19 04/22/21 History levothyroxine 75 mcg PO DAILY 07/05/19 04/22/21 History pantoprazole 40 mg PO DAILY 07/05/19 04/22/21 History potassium chloride 20 meq PO DAILY 07/05/19 04/22/21 History gauze bandage [Band-Aid Rolled #1 each 08/08/19 04/22/21 Rx Gauze] gauze bandage [Curad Gauze Pad] #1,200 each 08/08/19 04/22/21 Rx digoxin 250 mcg PO DAILY 04/22/21 04/22/21 History metoprolol succinate 25 mg PO DAILY 04/22/21 04/22/21 History
[2021-04-23 16:12] LABS: Anion Gap 6 mmol/L (8-16); Blood Urea Nitrogen 19 mg/dL (7-18); Calcium 7.8 mg/dL (8.5-10.1); Carbon Dioxide 24 mmol/L (21-32); Chloride 108 mmol/L (98-108); Estimated CRCL calculation 48 ml/min; Estimated Glomerular Filt Rate 36; Glucose 91 mg/dL (70-99); Osmolality Calculated 288 mOsm/kg (285-295); Potassium 4.3 mmol/L (3.5-5.1); Sodium 138 mmol/L (136-145)
[2021-04-23 20:41] LABS: Troponin I 20.1 ng/L (0.00-60.4)
[2021-04-23] MEDS: BETAMETHASONE/CLOTRIMAZOLE CR 45 GM TUBE 1 APPLIC TOPICAL (22:00)
[2021-04-23] MEDS: RIVAROXABAN 10 MG TABLET 20 MG PO (22:00)
[2021-04-24] VITALS (11 sets, daily range): BP systolic 92–146; BP diastolic 55–90; PULSE 82–100; RESP 16–18; TEMP 36.6–37.1; O2SAT 93–95
[2021-04-24 05:29] LABS: Basophils Absolute Auto 0.03 K/mm3 (0.00-0.10); Basophils Percent Auto 0.6 % (0.0-1.0); Eosinophils Absolute Auto 0.25 K/mm3 (0.02-0.50); Eosinophils Percent Auto 4.7 % (1.0-6.0); Hematocrit 32.5 % (40.0-54.0); Hemoglobin 9.8 g/dL (14.0-18.0); Immature Granulocyte Absolute 0.07 K/mm3 (0.00-0.00); Immature Granulocyte Percent A 1.3 % (0.0-0.0); Lymphocytes Absolute Auto 0.93 K/mm3 (1.10-4.50); Lymphocytes Percent Auto 17.3 % (18.0-42.0); Mean Corpuscular HGB Conc 30.2 g/dL (32.0-36.0); Mean Corpuscular Hemoglobin 31.6 pg (27.0-31.0); Mean Corpuscular Volume 104.8 fL (78.0-102.0); Monocytes Absolute Auto 0.35 K/mm3 (0.10-0.90); Monocytes Percent Auto 6.5 % (2.0-11.0); Neutrophils Absolute Auto 3.7 K/mm3 (1.7-7.2); Neutrophils Percent Auto 69.6 % (50.0-70.0); Platelet Count Result 148 K/mm3 (150-420); Red Cell Distribution Width 16.8 % (11.6-14.4); White Blood Count 5.4 K/mm3 (4.8-10.8)
[2021-04-24 05:51] LABS: Alanine Aminotransferase 14 U/L (16-63); Albumin Level 2.2 g/dL (3.4-5.0); Alkaline Phosphatase 46 U/L (46-116); Anion Gap 7 mmol/L (8-16); Aspartate Amino Transferase 12 U/L (15-37); Bilirubin,Total 0.5 mg/dL (0.00-1.00); Blood Urea Nitrogen 15 mg/dL (7-18); Carbon Dioxide 24 mmol/L (21-32); Chloride 110 mmol/L (98-108); Estimated CRCL calculation 54 ml/min; Estimated Glomerular Filt Rate 41; Glucose 85 mg/dL (70-99); NT Pro B Type Natriuretic Pept 1050 pg/mL (0-125); Osmolality Calculated 291 mOsm/kg (285-295); Sodium 141 mmol/L (136-145); Total Protein 5.3 g/dL (6.4-8.2); Troponin I 17.5 ng/L (0.00-60.4)
[2021-04-24] MEDS: LEVOTHYROXINE SODIUM 75 MCG TABLET PO (06:32)
[2021-04-24] MEDS: DIGOXIN 250 MCG TABLET PO (09:53)
[2021-04-24] MEDS: allopurinoL 100 MG TABLET PO ×2 (09:53→16:17)
[2021-04-24] MEDS: lisinopriL 20 MG TABLET PO (09:53)
[2021-04-24] MEDS: TOLNAFTATE 1% POWDER 45 GM BTL 1 APPLIC TOPICAL ×2 (09:54→22:02)
[2021-04-24] MEDS: CITALOPRAM HYDROBROMIDE 20 MG TABLET 40 MG PO (09:54)
[2021-04-24] MEDS: PANTOPRAZOLE 40 MG TABLET PO (09:54)
--- NOTE | 2021-04-24 11:16 | P.PN_ITS ---
Progress Note: A&P Assessment and Plan (1) Pneumonia: Qualifiers: Laterality: left Lung location: lower lobe of lung Pneumonia type: due to unspecified organism Qualified Code(s): J18.9 - Pneumonia, unspecified organism <KENIA Nair-C - Last Filed: 04/24/21 12:43> Code(s): J18.9 - Pneumonia, unspecified organism <KENIA Nair-C - Last Filed: 04/24/21 12:43> Status: Acute <KENIA Nair-C - Last Filed: 04/24/21 12:43> Assessment and Plan: Rocephin and Vancomycin * WBCs within normal limit patient afebrile * Blood culture pulmonary readings no growth <Sandra Padgett KENIA-C - Last Filed: 04/24/21 12:43> (2) Hypotension: Qualifiers: Hypotension type: unspecified hypotension type Qualified Code(s): I95.9 - Hypotension, unspecified <Sandra Padgett LABORATORY WORKER-C - Last Filed: 04/24/21 12:43> Code(s): I95.9 - Hypotension, unspecified <Sandra Padgett LABORATORY WORKER-C - Last Filed: 04/24/21 12:43> Status: Acute <Sandra Padgett KENIA-C - Last Filed: 04/24/21 12:43> Assessment and Plan: Holding some BP medications, orthostatic VS, no dizziness or light headedness with orthostatic VS, d/t CHF limit fluids * Blood pressure remains soft 108/55 * Will discontinue lisinopril and restart amiodarone due to history of A. fib <Sandra Padgett LABORATORY WORKER-C - Last Filed: 04/24/21 12:43> (3) CHF (congestive heart failure): Code(s): I50.9 - Heart failure, unspecified <Sandra Padgett LABORATORY WORKER-C - Last Filed: 04/24/21 12:43> Status: Acute <Sandra Padgett LABORATORY WORKER-C - Last Filed: 04/24/21 12:43> Assessment and Plan: Reading of Echocardiogram: Summary 1. Complete two-dimensional, color flow and Doppler transthoracic echocardiogram is performed. 2. Left ventricular systolic function is preserved, estimated at 50-55%. 3. Left ventricular chamber dimension is normal. 4. Left ventricular septal wall motion is abnormal with septal motion related to bundle branch block. 5. The left ventricular diastolic function is grade I diastolic dysfunction. 6. E/e' 15 is elevated. 7. Left atrial chamber dimension is mildly enlarged. BNP 4076, Renal involvement, Hypotension involvement, will monitor for fluid overload, Supriya hydration with NS at 75 ml/hr. Rechecked BMP after second CT scan with and without contrast and renal function slightly improved, Avoid nephrotoxic agents. Abd/Pel CT results/report: IMPRESSION: 1. 6.9 x 5.9 x 5.6 m mass abutting the se cond portion of the duodenum and head of the pancreas. The differential diagnosis includes gastrointestinal stromal tumor and pancreatic neuroendocrine tumor. CT-guided biopsy is recommended. 2. 12 mm stone in proximal right ureter with moderate right hydronephrosis. 3. 3 mm nonobstructing right kidney stone. * BNP 4076>1050 * weight 04/22 126.5 04/24 128.9 * intake 4015 output 3050 <NIGEL Nair - Last Filed: 04/24/21 12:43> (4) Candidiasis, cutaneous: Code(s): B37.2 - Candidiasis of skin and nail <NIGEL Nair - Last Filed: 04/24/21 12:43> Status: Acute <NIGEL Nair - Last Filed: 04/24/21 12:43> Assessment and Plan: Wound consultation ordered and recommendations obtained please see orders. Ab coverage <NIGEL Nair - Last Filed: 04/24/21 12:43> (5) Acute on chronic renal failure: Code(s): N17.9 - Acute kidney failure, unspecified; N18.9 - Chronic kidney disease, unspecified <NIGEL Nair - Last Filed: 04/24/21 12:43> Status: Acute <Sandra Ortiz
--- NOTE | 2021-04-24 11:16 | WPDPN ---
Progress Note: A&P Assessment and Plan (1) Pneumonia: Qualifiers: Laterality: left Lung location: lower lobe of lung Pneumonia type: due to unspecified organism Qualified Code(s): J18.9 - Pneumonia, unspecified organism <COLEMAN NairP-C - Last Filed: 04/24/21 12:43> Code(s): J18.9 - Pneumonia, unspecified organism <Sandra Padgett GAS DESULFURIZER-C - Last Filed: 04/24/21 12:43> Status: Acute <COLEMAN NairP-C - Last Filed: 04/24/21 12:43> Assessment and Plan: Rocephin and Vancomycin WBCs within normal limit patient afebrile Blood culture pulmonary readings no growth <Sandra Padgett GAS DESULFURIZER-C - Last Filed: 04/24/21 12:43> (2) Hypotension: Qualifiers: Hypotension type: unspecified hypotension type Qualified Code(s): I95.9 - Hypotension, unspecified <Sandra Padgett GAS DESULFURIZER-C - Last Filed: 04/24/21 12:43> Code(s): I95.9 - Hypotension, unspecified <Sandra Padgett GAS DESULFURIZER-C - Last Filed: 04/24/21 12:43> Status: Acute <Sandra Padgett GAS DESULFURIZER-C - Last Filed: 04/24/21 12:43> Assessment and Plan: Holding some BP medications, orthostatic VS, no dizziness or light headedness with orthostatic VS, d/t CHF limit fluids Blood pressure remains soft 108/55 Will discontinue lisinopril and restart amiodarone due to history of A. fib <aSndra Padgett GAS DESULFURIZER-C - Last Filed: 04/24/21 12:43> (3) CHF (congestive heart failure): Code(s): I50.9 - Heart failure, unspecified <Sandra Padgett GAS DESULFURIZER-C - Last Filed: 04/24/21 12:43> Status: Acute <Sandra Padgett GAS DESULFURIZER-C - Last Filed: 04/24/21 12:43> Assessment and Plan: Reading of Echocardiogram: Summary 1. Complete two-dimensional, color flow and Doppler transthoracic echocardiogram is performed. 2. Left ventricular systolic function is preserved, estimated at 50-55%. 3. Left ventricular chamber dimension is normal. 4. Left ventricular septal wall motion is abnormal with septal motion related to bundle branch block. 5. The left ventricular diastolic function is grade I diastolic dysfunction. 6. E/e' 15 is elevated. 7. Left atrial chamber dimension is mildly enlarged. BNP 4076, Renal involvement, Hypotension involvement, will monitor for fluid overload, Supriya hydration with NS at 75 ml/hr. Rechecked BMP after second CT scan with and without contrast and renal function slightly improved, Avoid nephrotoxic agents. Abd/Pel CT results/report: IMPRESSION: 1. 6.9 x 5.9 x 5.6 m mass abutting the second portion of the duodenum and head of the pancreas. The differential diagnosis includes gastrointestinal stromal tumor and pancreatic neuroendocrine tumor. CT-guided biopsy is recommended. 2. 12 mm stone in proximal right ureter with moderate right hydronephrosis. 3. 3 mm nonobstructing right kidney stone. BNP 4076>1050 weight 04/22 126.5 04/24 128.9 intake 4015 output 3050 <Sandra Padgett GAS DESULFURIZER-C - Last Filed: 04/24/21 12:43> (4) Candidiasis, cutaneous: Code(s): B37.2 - Candidiasis of skin and nail <Sandra Padgett GAS DESULFURIZER-C - Last Filed: 04/24/21 12:43> Status: Acute <Sandra Padgett GAS DESULFURIZER-C - Last Filed: 04/24/21 12:43> Assessment and Plan: Wound consultation ordered and recommendations obtained please see orders. Ab coverage <Sandra Padgett GAS DESULFURIZER-C - Last Filed: 04/24/21 12:43> (5) Acute on chronic renal failure: Code(s): N17.9 - Acute kidney failure, unspecified; N18.9 - Chronic kidney disease, unspecified <Sandra Padgett GAS DESULFURIZER-C - Last Filed: 04/24/21 12:43> Status: Acute <Sandra Padgett GAS DESULFURIZER-C - Last Filed: 04/24/21 12:43> Assessment and Plan: Nephrology consultation needed. Pt is not having any back pain or urinary issues at this time. See Abd/Pel CT scan. cr 2.17>2.09>1.96>1.74 Renal function improving, possibly secondary to stone in the ureter Will attempt to consult uro
--- NOTE | 2021-04-24 15:15 | PC.NURSE ---
Area under abdominal panis cleansed well with warm soap and water. Antinfungal cream and powder applied to area. Clean pillow cases applied to area to help with moisture. Patient resting in bed with hob elevated. Call light at side.
[2021-04-24 15:56] LABS: Add Urine Microscopic? YES; Appearance Urine Clear (Clear); Bilirubin Urine Negative (Negative); Blood Urine 2+ (Negative); Color Urine Light Yellow (Yellow); Glucose Urine UA Negative (Negative); Ketones Urine Negative (Negative); Leukocyte Esterase Ur Negative LEU/UL (Negative); Nitrate Urine Negative (Negative); Protein Urine Trace (Negative); Urobilinogen Urine 0.2 mg/dL (0.2-1.0)
[2021-04-24] MEDS: RIVAROXABAN 10 MG TABLET 20 MG PO (16:17)
[2021-04-24 16:19] LABS: Bacteria Urine Trace /hpf; Squamous Epithelial Cell Urine Rare /hpf (Few); WBC Urine 0-3 /hpf (0-3)
[2021-04-24] MEDS: BETAMETHASONE/CLOTRIMAZOLE CR 45 GM TUBE 1 APPLIC TOPICAL (22:02)
[2021-04-25] VITALS: BP 134/82; PULSE 88; RESP 16; TEMP 37; O2SAT 94
[2021-04-25 04:00] VITALS: PULSE 84
[2021-04-25 05:31] LABS: Hematocrit 32.2 % (40.0-54.0); Hemoglobin 9.7 g/dL (14.0-18.0); Mean Corpuscular HGB Conc 30.1 g/dL (32.0-36.0); Mean Corpuscular Hemoglobin 31.5 pg (27.0-31.0); Mean Corpuscular Volume 104.5 fL (78.0-102.0); Mean Platelet Volume 10.2 fl (8.7-11.0); Platelet Count Result 181 K/mm3 (150-420); Red Blood Count 3.08 M/mm3 (4.70-6.10); Red Cell Distribution Width 16.5 % (11.6-14.4); White Blood Count 5.7 K/mm3 (4.8-10.8)
[2021-04-25 05:48] LABS: Lactic Acid Reflex 0.9 mmol/L (0.4-2.0)
[2021-04-25 05:55] LABS: Alanine Aminotransferase 19 U/L (16-63); Albumin Level 2.5 g/dL (3.4-5.0); Alkaline Phosphatase 51 U/L (46-116); Anion Gap 10 mmol/L (8-16); Aspartate Amino Transferase 14 U/L (15-37); Bilirubin,Total 0.5 mg/dL (0.00-1.00); Blood Urea Nitrogen 14 mg/dL (7-18); CRP 7.4 mg/dL (0.0-0.9); Calcium 8.8 mg/dL (8.5-10.1); Carbon Dioxide 23 mmol/L (21-32); Chloride 111 mmol/L (98-108); Estimated CRCL calculation 58 ml/min; Estimated Glomerular Filt Rate 45; Glucose 106 mg/dL (70-99); Magnesium 2.2 mg/dL (1.8-2.4); Osmolality Calculated 298 mOsm/kg (285-295); Potassium 4.4 mmol/L (3.5-5.1); Sodium 144 mmol/L (136-145)
[2021-04-25] MEDS: LEVOTHYROXINE SODIUM 75 MCG TABLET PO (06:05)
[2021-04-25 08:00] VITALS: BP 143/89; PULSE 76; RESP 17; TEMP 36.2; O2SAT 96
--- NOTE | 2021-04-25 08:33 | PM.DS ---
DS: Admitting Diagnosis Discharge Date 04/25/2021 <Sandra Padgett NIGEL - Last Filed: 04/25/21 10:49> Admitting Diagnosis Pneumonia, congestive heart failure acute on chronic renal failure <Sandra Padgett NIGEL - Last Filed: 04/25/21 10:49> DS: Discharge Diagnosis Discharge Diagnosis (1) Pneumonia: Qualifiers: Laterality: left Lung location: lower lobe of lung Pneumonia type: due to unspecified organism Qualified Code(s): J18.9 - Pneumonia, unspecified organism <Sandra Padgett NIGEL - Last Filed: 04/25/21 10:49> Code(s): J18.9 - Pneumonia, unspecified organism <Sandra Padgett NIGEL - Last Filed: 04/25/21 10:49> Status: Acute <Sandra Padgett NIGEL - Last Filed: 04/25/21 10:49> Assessment and Plan: Rocephin and Vancomycin WBCs within normal limit patient afebrile Blood culture preliminary readings no growth <NIGEL Nair - Last Filed: 04/25/21 10:49> (2) Hypotension: Qualifiers: Hypotension type: unspecified hypotension type Qualified Code(s): I95.9 - Hypotension, unspecified <Sandra Padgett NIGEL - Last Filed: 04/25/21 10:49> Code(s): I95.9 - Hypotension, unspecified <Sandra Padgett NIGEL - Last Filed: 04/25/21 10:49> Status: Acute <Sandra Padgett NIGEL - Last Filed: 04/25/21 10:49> Assessment and Plan: Holding some BP medications, orthostatic VS, no dizziness or light headedness with orthostatic VS, d/t CHF limit fluids Blood pressure improved Patient will discharge home with medication adjustment due to low blood pressure reading this hospital stay: Amiodarone decreased to 100 mg daily,Benazepril 20 mg on hold until evaluated by primary care physician who will determine whether or not to restart this medication, digoxin unchanged 250 mcg daily, metoprolol decreased to 12.5 daily Patient instructed to take his blood pressure reading daily at the same time record and give results to primary care physician <NIGEL Nair - Last Filed: 04/25/21 10:49> (3) CHF (congestive heart failure): Code(s): I50.9 - Heart failure, unspecified <Sandra PauloNIGEL Guillen - Last Filed: 04/25/21 10:49> Status: Acute <Sandra PauloNIGEL Guillen - Last Filed: 04/25/21 10:49> Assessment and Plan: Reading of Echocardiogram: Summary 1. Complete two-dimensional, color flow and Doppler transthoracic echocardiogram is performed. 2. Left ventricular systolic function is preserved, estimated at 50-55%. 3. Left ventricular chamber dimension is normal. 4. Left ventricular septal wall motion is abnormal with septal motion related to bundle branch block. 5. The left ventricular diastolic function is grade I diastolic dysfunction. 6. E/e' 15 is elevated. 7. Left atrial chamber dimension is mildly enlarged. BNP 4076, Renal involvement, Hypotension involvement, will monitor for fluid overload, Supriya hydration with NS at 75 ml/hr. Rechecked BMP after second CT scan with and without contrast and renal function slightly improved, Avoid nephrotoxic agents. Abd/Pel CT results/report: IMPRESSION: 1. 6.9 x 5.9 x 5.6 m mass abutting the second portion of the duodenum and head of the pancreas. The differential diagnosis includes gastrointestinal stromal tumor and pancreatic neuroendocrine tumor. CT-guided biopsy is recommended. 2. 12 mm stone in proximal right ureter with moderate right hydronephrosis. 3. 3 mm nonobstructing right kidney stone. BNP 4076>1050 weight 04/22 126.5 04/24 128.9 04/25/2021 126. Continue Lasix Follow-up with primary care physician on discharge <NIGEL Nair - Last Filed: 04/25/21 10:49> (4) Candidiasis, cutaneous: Code(s): B37.2 - Candidiasis of skin and nail <NIGEL Nair - Last Filed: 04/25/21 10:49> Status: Acute <NIGEL Nair - Last Filed: 04/25/21 10:49> Assessment and Plan:
[2021-04-25 09:28] VITALS: PULSE 67
[2021-04-25] MEDS: DIGOXIN 250 MCG TABLET PO (09:28)
[2021-04-25] MEDS: allopurinoL 100 MG TABLET PO (09:28)
[2021-04-25] MEDS: CITALOPRAM HYDROBROMIDE 20 MG TABLET 40 MG PO (09:28)
[2021-04-25] MEDS: AMIODARONE HCL 100 MG TABLET PO (09:28)
[2021-04-25] MEDS: PANTOPRAZOLE 40 MG TABLET PO (09:28)
[2021-04-25] MEDS: BETAMETHASONE/CLOTRIMAZOLE CR 45 GM TUBE 1 APPLIC TOPICAL (11:27)
[2021-04-25] MEDS: TOLNAFTATE 1% POWDER 45 GM BTL 1 APPLIC TOPICAL (11:27)
--- NOTE | 2021-04-25 13:05 | PC.NURSE ---
Reviewed discharge instructions with patient. All questions answered. Pt had concerns of transportation to [place] tomorrow for lithotripsy appointment. [facility] transit was unable to accommodate because of short notice. Pt's contact lens blocker and cutter was notified of need for transportation. Pt transported via wheelchair to transit bus for transport to home.
== END 2021-04-25 12:50 | disposition home or self-care (01) | DRG 194 ==
LOC: CHSED 12:00 → CHS2ND 14:37
PROVIDERS: Nurse Practitioner; Nurse Practitioner Family; Admitting Provider Emergency Medicine; Emergency Provider Emergency Medicine; PCP Nurse Practitioner; Visit Provider Emergency Medicine
DX: J18.9 Pneumonia, unspecified organism (principal); I13.0 Hypertensive heart and chronic kidney disease with heart failure and stage 1 through stage 4 chronic kidney disease, or unspecified chronic kidney disease; N17.9 Acute kidney failure, unspecified; N13.2 Hydronephrosis with renal and ureteral calculous obstruction; N18.9 Chronic kidney disease, unspecified; I50.9 Heart failure, unspecified; I48.0 Paroxysmal atrial fibrillation; I25.10 Atherosclerotic heart disease of native coronary artery without angina pectoris; I95.9 Hypotension, unspecified; J44.9 Chronic obstructive pulmonary disease, unspecified; K21.9 Gastro-esophageal reflux disease without esophagitis; E03.9 Hypothyroidism, unspecified; B37.2 Candidiasis of skin and nail; R19.00 Intra-abdominal and pelvic swelling, mass and lump, unspecified site; E66.01 Morbid (severe) obesity due to excess calories; Z86.711 Personal history of pulmonary embolism; Z79.01 Long term (current) use of anticoagulants
CPT/HCPCS: 11042; 36415; 71045; 71260; 74018; 74178; 80048; 80053; 81001; 82607; 82746; 83605; 83735; 83880; 84484; 85025; 85027; 85610; 85730; 86140; 87040; 87502; 93005; 93306; 96361; 96365; 96366; 96367; 97161; 97165; 97530; 99211; 99285; A9270; C9803; G0378; G0463; J0696; J3370; J7030; Q9967; U0003; U0005

== ENCOUNTER 2021-04-26 00:33 | Day surgery (SDC) | payer MEDICARE, MEDICAID, SELFPAY ==
[2021-04-25 08:27] VITALS: BMI 49.4
--- NOTE | 2021-04-25 08:49 | PC.NURSE ---
Report to the Outpatient Waiting Room, entrance under the green pavilion located off [facility], at time 8:30 AM on date 04/26/21. OR Time: 10:30 AM. - You will be asked a series of questions to screen for COVID 19 for your protection. - A mask is required within the hospital. - No visitors are allowed at this time. Patient visitors will be guided where to wait when not with patient. Preoperative COVID Testing Requirements: No COVID Test needed if: (proof is required; if not received patient will have Rapid Test prior to entry) - Patient has received COVID Vaccine at least 14 days prior to procedure date or - Patient has positive COVID test result within last 90 days of surgery date. COVID Test needed if above criteria is not met Patients may have clear liquids (water, carbonated beverages, clear teas, apple juice) until 3 hours prior to surgery (7:30 AM) with a maximum of 20 ounces. - No food from midnight until time of surgery Take the following medications with a SIP of water the morning of surgery: AMIODARONE, CITALOPRAM, DIGOXIN, LEVOTHYROXINE, METOPROLOL Medications to discontinue per physician: VITAMINS/SUPPLEMENTS Date to take last dose: NOW STOP XARELTO INSTRUCTED BY DR. SIMMONS Please no make-up, nail latvian, hairspray, perfume, deodorant, or body powder the day of surgery. No jewelry (including any body piercings) or valuables the day of surgery, leave them at home. Please take a shower or bath the night before, or the morning of, surgery with an antibacterial soap. Wear comfortable, loose fitting clothing. Children are encouraged to wear pajamas. - Jewelry must be removed prior to entering the operating room. Rings and piercings that are not removed may be cut off. - The hospital will not accept responsibility for valuables. - Please leave all valuables, including medications, at home the day of surgery. If you are going home after surgery, a licensed class b truck driver must drive you home. - NO public transportation without another adult. - We recommend that an adult stay with you for 24 hours following discharge. - We also recommend that you do not drive, make important decision, drink alcoholic beverages, or take any drugs that were not prescribed by your health care provider for at least 24 hours after your discharge time. Follow any additional instructions given to you from your surgeon. Telephone instructions FAXED TO [facility] and asked if any additional questions and then verbalized understanding. Patient advised to call surgeon office or pre surgery nurse liaison [phone] if any additional questions.
--- NOTE | 2021-04-25 13:42 | WPDANESEPPF ---
Anes - Initial Pre Proc Eval Procedure: Operation Date: 04/26/21 14:00 Proposed Procedures p Cystoscopy, Right Stent Placement - Srini Luna MD <Baldemar Madrigal MD - Last Filed: 04/29/21 15:37> Date/Time: 04/25/21 13:42 <Baldemar Madrigal MD - Last Filed: 04/29/21 15:37> Surgeon: Srini Luna MD <Baldemar Madrigal MD - Last Filed: 04/29/21 15:37> Pre Op Diagnosis: ureteral stone <Baldemar Madrigal MD - Last Filed: 04/29/21 15:37> Patient Data Age: 55 Gender: M Height: 1.63 m Weight: 130.63 kg <Baldemar Madrigal MD - Last Filed: 04/29/21 15:37> Allergies Allergy/AdvReac Type Severity Reaction Status Date / Time Sulfa (Sulfonamide Allergy Mild Rash Verified 04/26/21 09:45 Antibiotics) Penicillins AdvReac Severe Anaphylaxis Verified 04/26/21 09:45 <Baldemar Madrigal MD - Last Filed: 04/29/21 15:37> Home Medications Medication Instructions Recorded Confirmed Type Xarelto 20 mg PO DAILY 07/05/19 04/26/21 History benazepril 20 mg PO DAILY 07/05/19 04/26/21 History citalopram 40 mg PO DAILY 07/05/19 04/26/21 History furosemide 40 mg PO DAILY 07/05/19 04/26/21 History pantoprazole 40 mg PO DAILY 07/05/19 04/26/21 History potassium chloride 20 meq PO DAILY 07/05/19 04/26/21 History gauze bandage [Band-Aid Rolled #1 each 08/08/19 04/22/21 Rx Gauze] gauze bandage [Curad Gauze Pad] #1,200 each 08/08/19 04/22/21 Rx allopurinol 200 mg PO DAILY 05/14/20 04/26/21 History cyanocobalamin (vitamin B-12) 500 mcg PO DAILY 05/14/20 04/26/21 History [Vitamin B-12] ferrous sulfate 325 mg PO DAILY 05/14/20 04/26/21 History levothyroxine 75 mcg PO DAILY 05/14/20 04/26/21 History digoxin 250 mcg PO DAILY 04/22/21 04/26/21 History amiodarone 100 mg PO DAILY #30 tablet 04/25/21 04/26/21 Rx hydrocodone-acetaminophen 1 tablet PO Q6H PRN #20 tablet 04/25/21 04/25/21 Rx metoprolol succinate 12.5 mg PO DAILY #30 tablet 04/25/21 04/26/21 Rx tolnaftate 1 applic TOPICAL Q12HR #45 g 04/25/21 04/26/21 Rx hydrocodone-acetaminophen 1 - 2 tablet PO Q6H PRN #20 tablet 04/26/21 Rx <Baldemar Madrigal MD - Last Filed: 04/29/21 15:37> Patient hx anesthesia problems: none <Kelton Wilson MD - Last Filed: 04/26/21 11:30> Family hx anesthesia problems: none <Kelton Wilson MD - Last Filed: 04/26/21 11:30> Results Review: All pre-operative results and documents have been reviewed as part of the pre-operative evaluation. <Baldemar Madrigal MD - Last Filed: 04/29/21 15:37> [facility] Past Medical History Medical History: Medical History Acute on chronic renal failure Afib CAD (coronary artery disease) CHF (congestive heart failure) CHF (congestive heart failure) COPD (chronic obstructive pulmonary disease) Current use of halfway anticoagulation DVT (deep venous thrombosis) GERD (gastroesophageal reflux disease) GERD (gastroesophageal reflux disease) HTN (hypertension) Hypothyroidism Hypothyroidism Hypothyroidism (acquired) Morbid obesity Obesity Paroxysmal A-fib Psoriasis Pulmonary emboli Renal insufficiency <Baldemar Madrigal MD - Last Filed: 04/29/21 15:37> Surgical History Surgical History: Surgical History Hx of cholecystectomy <Baldemar Madrigal MD - Last Filed: 04/29/21 15:37> Family History Family History: Family History Other Family history non-contributory <Baldemar Madrigal MD - Last Filed: 04/29/21 15:37> Social History Social History: Social History Smoking status: Never smoker Second hand tobacco smoke exposure: Yes Alcohol intake: never Substance use: never Substance use type: does not use Living arrangements: alone Gender identity (if verbalized by the patient): Male Spiritual car
[2021-04-26] VITALS (12 sets, daily range): BP systolic 123–163; BP diastolic 68–97; PULSE 71–81; RESP 16–22; TEMP 36.1–36.4; O2SAT 96–100
--- NOTE | ~2021-04-26 | XR_ITS ---
EXAMINATION: XR abdomen/kub 1V DATE: 04/26/2021 13:23 INDICATION: Right ureteral stone. TECHNIQUE: A supine view of the abdomen was obtained. COMPARISON: CT abdomen and pelvis 04/23/2021 FINDINGS: There are no dilated loops of bowel. There is a 17 x 9 mm stone in proximal right ureter. T here is a right internal ureteral stent in expected position. There is right-sided hydronephrosis wit h contrast in the proximal collecting system. There is a 10 mm stone in left kidney. There is a filte r in the inferior vena cava. Surgical clips in the right upper quadrant are likely from cholecystecto my. IMPRESSION: 1. 17 x 9 mm stone in proximal right ureter with right internal ureteral stent in expected position. Right-sided hydronephrosis. 2. 10 mm left kidney stone. Reviewed, dictated and finalized at location B. AND HANGER ATTACHER
--- NOTE | ~2021-04-26 | XR_ITS ---
EXAMINATION: XR retrograde pyelo w/stent RT EXAM DATE: 04/26/2021 12:47 INDICATION: Right proximal ureteral stone. TECHNIQUE: Fluoroscopy used during XR retrograde pyelo w/stent RT performed by Dr. Srnii Luna MD, urologist. The radiologist Kumar Sullivan M.D. dictating this report of the image(s) available wa s not present for the procedure. Total fluoroscopic time of 165 seconds The DAP for this procedure was 6.5 mGym2. A total of 9 images sent to PACS from the exam. Correlation is made to CT abdomen pe lvis 04/23/2021. FINDINGS: Right ureter was cannulated, injected, has a medial course. There is moderate hydronephros is. A double-J ureteral stent was placed. Difficult identify the right UPJ stone seen on CT. Correla te with procedure note. IMPRESSION: Moderate right hydronephrosis. Stent in position. Reviewed, dictated and finalized at location A. BPM DEVELOPER
--- NOTE | 2021-04-26 06:48 | WPDHPUPDATE1 ---
History and Physical Update Update Date/Time: 04/26/21 06:48 History and Physical has been reviewed, including an updated exam of the patient. There are NO changes in the patient's condition. Risks, benefits, and alternatives have been discussed and questions answered. Patient agrees to proceed with procedure.
[2021-04-26] MEDS: LACTATED RINGERS 1,000 ML 30 ML IV CONT (10:26)
[2021-04-26] MEDS: ceFAZolin 3 GM/D5W 100 ML 100 ML IVPB (11:47)
--- NOTE | 2021-04-26 12:18 | SUR.OPER ---
Pt arrives to the OR with shorts still on from pre-op.
--- NOTE | 2021-04-26 12:35 | W.PM.PROC2 ---
Procedure Note - Detailed Date of Procedure 04/26/21 Pre-op Diagnosis Right ureteral stone Post-op Diagnosis same Procedure Performed Cystoscopy, right retrograde pyelography with right ureteral stent placement Surgeon Srini Luna MD Anesthesia general Description of Procedure patient brought to the operative suite was prepped draped in routine sterile fashion while in dorsal lithotomy position after the uneventful induction of a general LMA anesthetic. Cystoscopy is undertaken with a 19 F rigid cystoscope. He has a very high median bar with moderate lateral lobe enlargement of the prostate. Bladder mucosa is normal without hyperemia. There was no intravesical foreign body or neoplasm. He has a single orthotopic ureteral orifice bilaterally. The angiographic catheter used to obtain a retrograde pyelogram ensure appropriate positioning of his stent. He has a very obstructing stone in the right proximal ureter. I was able to negotiate a wire beyond it into the renal pelvis in place a 4.8 F variable length stent with proximal coil in the renal pelvis and distal coil in the bladder. Scopes and wires removed. This point we will look for clearance to stop his anticoagulation and proceed with right ESWL. Estimated Blood Loss 0 Drains Yes Packing No Pathology none sent Complications No immediate complications Condition stable Disposition PACU
== END 2021-04-26 15:30 | disposition home or self-care (01) ==
PROVIDERS: PCP Nurse Practitioner; Visit Provider Urology
PROC: (CPT 52352; principal; 2021-04-26 12:00)
DX: N13.2 Hydronephrosis with renal and ureteral calculous obstruction (principal); I25.10 Atherosclerotic heart disease of native coronary artery without angina pectoris; J44.9 Chronic obstructive pulmonary disease, unspecified; I48.0 Paroxysmal atrial fibrillation; Z86.711 Personal history of pulmonary embolism; Z79.01 Long term (current) use of anticoagulants; K21.9 Gastro-esophageal reflux disease without esophagitis; I11.0 Hypertensive heart disease with heart failure; I50.9 Heart failure, unspecified; Z86.718 Personal history of other venous thrombosis and embolism; E03.9 Hypothyroidism, unspecified; L40.9 Psoriasis, unspecified; N28.9 Disorder of kidney and ureter, unspecified; E66.01 Morbid (severe) obesity due to excess calories; Z68.42 Body mass index [BMI] 45.0-49.9, adult
CPT/HCPCS: 52332; 74018; 74420; A9270; C1769; C1887; C2617; J0131; J0690; J2405; J2704; J3010; J7120; Q9966

== ENCOUNTER 2021-05-15 16:29 | Emergency (ER) | payer MEDICARE, MEDICAID, SELFPAY ==
--- NOTE | ~2021-05-15 | CT_ITS ---
EXAMINATION: CT abdomen pelvis w con DATE: 05/15/2021 19:14 INDICATION: Left lower quadrant abdominal pain. TECHNIQUE: Computed tomography (CT) of the abdomen and pelvis was performed with 100 mL Omnipaque 350 intravenous contrast. Automated exposure control and iterative reconstruction technique were employe d. The dose-length product was 2086.32 mGy-cm. COMPARISON: CT abdomen and pelvis 04/23/2021 FINDINGS: The visualized portions of the lung bases demonstrate mild atelectasis. No pleural effusion . The heart size is normal. There are coronary artery calcifications. No pericardial effusion. The li latasha demonstrates pneumobilia, likely secondary to sphincterotomy. There are changes of cholecystectom y. The spleen, pancreas, and adrenal glands are normal. There is an 8.5 x 6.1 cm mass abutting the du odenum and head of the pancreas. There is cortical thinning of the kidneys. There are cysts in the ki dneys measuring up to 5 mm on the right. There are 3 stones in right kidney measuring up to 5 mm. The re is a 3 mm stone in right renal pelvis. There is moderate right hydronephrosis. There is a right in ternal ureteral stent in expected position. There is a cluster of stones measuring up to 12 mm in pro ximal right ureter. There is a 10 mm stone in left kidney. There is a filter in the inferior vena cav a. There are no dilated loops of bowel. The appendix is normal. There are no pathologically enlarged lymph nodes. There is no ascites. There is mild bilateral external iliac and mild right common iliac lymphadenopathy, likely reactive. There is a subcutaneous hematoma in left flank. There is soft tissu e gas involving the penis. There are healing right rib fractures. There are old healed left rib fract ures. There is mild chronic anterior wedging of multiple lower thoracic vertebral bodies. There is mi ld lumbar spondylosis. IMPRESSION: 1. Subcutaneous hematoma in left flank. 2. 8.5 cm mass abutting the duodenum and head of the pancreas. The differential diagnosis includes ga strointestinal stromal tumor and pancreatic neuroendocrine tumor. CT-guided biopsy is recommended. 3. Stones in the kidneys and proximal right ureter with right internal ureteral stent in expected pos ition. Moderate right hydronephrosis. 4. Soft tissue gas involving the penis. Correlate with physical exam. Reviewed, dictated and finalized at location A. BREAKER OPERATOR IMPRESSION: 1. Subcutaneous hematoma in left flank. 2. 8.5 cm mass abutting the duodenum and head of the pancreas. The differential diagnosis includes gastrointestinal stromal tumor and pancreatic neuroendocrin e tumor. CT-guided biopsy is recommended. 3. Stones in the kidneys and proximal right ureter with right internal ureteral stent in expected position. Moderate right hydronephrosis. 4. Soft tissue gas involving the penis. Correlate with physical exam.
--- NOTE | ~2021-05-15 | XR_ITS ---
EXAMINATION: XR chest 1V portable DATE: 05/15/2021 19:15 INDICATION: Shortness of breath. TECHNIQUE: A single frontal view of the chest was obtained. COMPARISON: Chest single view 04/22/2021, CT abdomen and pelvis 05/15/2021 FINDINGS: There is mild atelectasis in the lower lung zones. No pleural effusion or pneumothorax. Car diomegaly is noted. There are old healed rib fractures. IMPRESSION: 1. Mild atelectasis in the lower lung zones. 2. Cardiomegaly. Reviewed, dictated and finalized at location A. CAL GLASS SAWYER
[2021-05-15 16:30] VITALS: BP 182/75; PULSE 107; RESP 18; TEMP 36.9; O2SAT 96
--- NOTE | 2021-05-15 16:51 | ECG_ITS ---
Measurements Intervals [place] Rate: 108 P: 12 AR: 217 QRS: -76 QRSD: 119 T: 73 QT: 304 QTc: 408 Interpretive Statements SINUS OR ECTOPIC ATRIAL TACHYCARDIA RIGHT BUNDLE BRANCH BLOCK LEFT ANTERIOR FASCICULAR BLOCK BASELINE ARTIFACT- I, II, III, AVR, AVL, AVF, V1-V3 ABNORMAL ECG Electronically Signed On 05-15-2021 18:22:49 REPRODUCTIVE SURGEON by Parrish Hayes D.O.
[2021-05-15 17:41] LABS: Basophils Absolute Auto 0.03 K/mm3 (0.00-0.10); Basophils Percent Auto 0.3 % (0.0-1.0); Eosinophils Absolute Auto 0.15 K/mm3 (0.02-0.50); Eosinophils Percent Auto 1.3 % (1.0-6.0); Hematocrit 38.3 % (40.0-54.0); Hemoglobin 11.8 g/dL (14.0-18.0); Immature Granulocyte Absolute 0.07 K/mm3 (0.00-0.00); Immature Granulocyte Percent A 0.6 % (0.0-0.0); Lymphocytes Absolute Auto 0.72 K/mm3 (1.10-4.50); Lymphocytes Percent Auto 6.4 % (18.0-42.0); Mean Corpuscular HGB Conc 30.8 g/dL (32.0-36.0); Monocytes Absolute Auto 0.16 K/mm3 (0.10-0.90); Monocytes Percent Auto 1.4 % (2.0-11.0); Neutrophils Absolute Auto 10.1 K/mm3 (1.7-7.2); Platelet Count Result 139 K/mm3 (150-420); Red Blood Count 3.58 M/mm3 (4.70-6.10); White Blood Count 11.2 K/mm3 (4.8-10.8)
[2021-05-15 17:42] LABS: Add Urine Microscopic? YES; Appearance Urine Clear (Clear); Bilirubin Urine Negative (Negative); Blood Urine 3+ (Negative); Color Urine Light Yellow (Yellow); Glucose Urine UA Negative (Negative); Ketones Urine Negative (Negative); Leukocyte Esterase Ur Negative LEU/UL (Negative); Nitrate Urine Negative (Negative); Protein Urine Negative (Negative); Specific Grav Ur 1.015 (1.010-1.020); Urobilinogen Urine 0.2 mg/dL (0.2-1.0)
[2021-05-15] MEDS: ONDANSETRON INJ 4 MG/2 ML VIAL IV PUSH (17:45)
[2021-05-15] MEDS: FUROSEMIDE INJ 100 MG/10 ML VIAL 80 MG IV PUSH (17:45)
[2021-05-15] MEDS: PANTOPRAZOLE SODIUM IV 40 MG VIAL IV PUSH (17:45)
[2021-05-15] MEDS: SODIUM CHLORIDE 0.9% IV 500 ML 999 ML IV CONT (17:45)
--- NOTE | 2021-05-15 17:47 | PC.NURSE ---
ERP approved RNs usage of condom catheter. Verbal order for condom catheter. RN applied condom cath with RADHA Allen. Pt tolerated well.
[2021-05-15 17:51] LABS: RBC Urine >75 /hpf (0-2); Squamous Epithelial Cell Urine Rare /hpf (Few); WBC Urine None seen /hpf (0-3)
[2021-05-15 17:52] LABS: Bacteria Urine None seen /hpf
[2021-05-15 17:56] LABS: INR 1.5; Partial Thromboplastin Time 37.7 SEC (23.90-30.70); Prothrombin Time 15.7 Seconds (9.50-12.10)
[2021-05-15 18:00] LABS: Alanine Aminotransferase 17 U/L (16-63); Albumin Level 3.3 g/dL (3.4-5.0); Alkaline Phosphatase 73 U/L (46-116); Anion Gap 12 mmol/L (8-16); Aspartate Amino Transferase 18 U/L (15-37); Bilirubin,Total 0.8 mg/dL (0.00-1.00); Blood Urea Nitrogen 17 mg/dL (7-18); Carbon Dioxide 23 mmol/L (21-32); Chloride 104 mmol/L (98-108); Estimated CRCL calculation 54 ml/min; Estimated Glomerular Filt Rate 42; Glucose 95 mg/dL (70-99); Lipase 57 U/L (73-393); Osmolality Calculated 289 mOsm/kg (285-295); Potassium 4.7 mmol/L (3.5-5.1); Sodium 139 mmol/L (136-145); Total Protein 7.1 g/dL (6.4-8.2); Troponin I 23.3 ng/L (0.00-60.4)
[2021-05-15 18:02] VITALS: BP 140/66; PULSE 109; RESP 20; O2SAT 100
[2021-05-15 18:03] LABS: Lactic Acid Reflex 2.2 mmol/L (0.4-2.0)
[2021-05-15 18:10] LABS: SARS-CoV-2 Ag Negative (Negative)
--- NOTE | 2021-05-15 18:56 | PC.NURSE ---
Pt at CT scan at this time.
--- NOTE | 2021-05-15 19:23 | PC.NURSE ---
PT assisted on bedpan after CT. Pt tolerated well, but was unable to have a BM. Pts condom cath came off during CT transfer. PRO and Meng MAST and Ad MAST placed new catheter.
--- NOTE | 2021-05-15 19:24 | PC.NURSE ---
PRO gave report Ad
--- NOTE | 2021-05-15 20:08 | ED.ABDPAIN ---
HPI - Abdominal Pain General Chief Complaint: Abdominal Pain Stated Complaint: AMB Time Seen by Provider: 05/15/21 16:31 Source: patient, EMS and RN notes reviewed Mode of arrival: EMS Limitations: no limitations History of Present Illness MD elicited complaint: abdominal pain Pertinent past history: kidney stones Onset (ago): hour(s) (5) Location: diffuse Severity: mild Pain scale (0-10): 5 Quality: cramping, aching and dull Radiation: bilateral flank Migration to: no migration Exacerbating factors: nothing Relieving factors: nothing Context: confirms history of similar episodes Associated symptoms: nausea and vomiting Related Data Home Medications Medication Instructions Recorded Confirmed Xarelto 20 mg PO DAILY 07/05/19 05/15/21 benazepril 20 mg PO DAILY 07/05/19 05/15/21 citalopram 40 mg PO DAILY 07/05/19 05/15/21 furosemide 40 mg PO DAILY 07/05/19 05/15/21 pantoprazole 40 mg PO DAILY 07/05/19 05/15/21 potassium chloride 20 meq PO DAILY 07/05/19 05/15/21 allopurinol 200 mg PO DAILY 05/14/20 05/15/21 cyanocobalamin (vitamin B-12) 500 mcg PO DAILY 05/14/20 05/15/21 [Vitamin B-12] ferrous sulfate 325 mg PO DAILY 05/14/20 05/15/21 levothyroxine 75 mcg PO DAILY 05/14/20 05/15/21 digoxin 250 mcg PO DAILY 04/22/21 05/15/21 Allergies Allergy/AdvReac Type Severity Reaction Status Date / Time Sulfa (Sulfonamide Allergy Mild Rash Verified 05/15/21 16:40 Antibiotics) Penicillins AdvReac Severe Anaphylaxis Verified 05/15/21 16:40 Review of Systems Review of Systems: All systems reviewed & are unremarkable except as noted in HPI and below Gastrointestinal: Gastrointestinal: Reports abdominal pain and Reports nausea PMFSH Past Medical History Medical History Acute on chronic renal failure Afib CAD (coronary artery disease) CHF (congestive heart failure) CHF (congestive heart failure) COPD (chronic obstructive pulmonary disease) 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 DVT (deep venous thrombosis) GERD (gastroesophageal reflux disease) GERD (gastroesophageal reflux disease) HTN (hypertension) Hypothyroidism Hypothyroidism Hypothyroidism (acquired) Morbid obesity Obesity Paroxysmal A-fib Psoriasis Pulmonary emboli Renal insufficiency Surgical History Surgical History Hx of cholecystectomy Family History Family History Other Family history non-contributory Social History Social History Smoking status: Never smoker Second hand tobacco smoke exposure: Yes Alcohol intake: never Substance use: never Substance use type: does not use Gender identity (if verbalized by the patient): Male Spiritual care concerns: No Agree to blood products: No Exam Const: General: no acute distress and alert Nutritional Appearance: obese Orientation/consciousness: patient oriented x3 Limitations: no limitations HENMT: Head: normal to inspection Ears: external ears normal and TM's normal bilaterally General nose exam: Normal external nose present and Normal nares present Mouth: Yes lip normal and Yes moist mucous membranes Teeth and gingiva: dentition normal Eyes: Conjunctivae: conjunctivae normal Pupils: Equal, round and reactive pupils present EOM: EOMs intact bilaterally Neck: Neck: normal visual inspection Chest: Chest palpation & inspection: normal inspection of the chest Resp: Effort & Inspection: normal respiratory effort Auscultation: clear to auscultation bilaterally Cardio: Rate: tachycardic Rhythm: regular rhythm GI: GI Palp: Yes Soft to palpation and Yes Tenderness to palpation present (GI) (minimal epigastric tenderness) : General: Yes bladder normal to palpation and Yes no CVA tenderness Back/Spine/Pelvis: Back: no CVA tenderness Skin: Genera
[2021-05-15 20:37] LABS: Reflex Lactic Acid Yes or No Add Lactic
[2021-05-15] MEDS: KETOROLAC (*BKC) 60 MG/2 ML VIAL IM (20:51)
--- NOTE | 2021-05-15 21:05 | PC.NURSE ---
pt attempting to contact someone for a ride home at this time.
--- NOTE | 2021-05-15 21:23 | PC.NURSE ---
pt still attempting to contact someone for a ride.
--- NOTE | 2021-05-15 21:34 | PC.NURSE ---
pt informed this staff member that he has someone coming to take him home
[2021-05-15 21:45] VITALS: BP 101/52; PULSE 104; RESP 18; O2SAT 95
--- NOTE | 2021-05-15 22:20 | PC.NURSE ---
pt ride arrived to transport patient. pt dressed, condom catheter removed, and discharge paperwork given to pt
== END 2021-05-15 22:20 | disposition home or self-care (01) ==
PROVIDERS: Emergency Provider Emergency Medicine; PCP Nurse Practitioner
DX: E66.01 Morbid (severe) obesity due to excess calories (principal); R19.00 Intra-abdominal and pelvic swelling, mass and lump, unspecified site; R10.9 Unspecified abdominal pain; N20.0 Calculus of kidney; Z20.822 Contact with and (suspected) exposure to COVID-19; I25.10 Atherosclerotic heart disease of native coronary artery without angina pectoris; I50.9 Heart failure, unspecified; J44.9 Chronic obstructive pulmonary disease, unspecified; K21.9 Gastro-esophageal reflux disease without esophagitis; I10 Essential (primary) hypertension; E03.9 Hypothyroidism, unspecified; I48.91 Unspecified atrial fibrillation
CPT/HCPCS: 36415; 71045; 74177; 80053; 81001; 83605; 83690; 84484; 85025; 85610; 85730; 87426; 93005; 96361; 96372; 96374; 96375; 99283; 99284; C9113; C9803; J1885; J1940; J2405; J7040; Q9967